=== PATIENT | male | born 1950 | race Caucasian/White ===

== ENCOUNTER 2020-05-19 00:49 | Inpatient (IN) | payer BC, MEDICARE ==
--- NOTE | 2020-05-19 01:17 | ED ---
Neuro HPI - General Stated Complaint: Possible Stroke Time Seen by Provider: 05/19/20 00:50 Source: EMS Mode of arrival: EMS - History of Present Illness Is the patient presenting with stroke symptoms?: Yes Last Known Well Date: 05/18/20 Last Known Well Time: 23:50 Onset/Timin -: minutes(s) Initial Comments: Patient 69-year-old man here to be evaluated for suspected stroke. Patient had been in the bathroom approximately 10 minutes before midnight when he developed left-sided facial droop and left upper extremity weakness. The patient also noted that his speech was not clear. They did call EMS and patient comes arrival. He is denying headache. No right-sided symptoms. Location: speech, left face, left arm History of same: No Place: home Severity: severe Quality: weak Improves With: time Worsens With: none On Anticoagulants: No Context: sudden onset Associated Symptoms: denies other symptoms Treatments Prior to Arrival: none - Related Data Home Medications: Home Medications Medication Instructions Recorded Confirmed Multivitamins, Thera [Multivitamin 1 tab PO DAILY 05/19/20 05/19/20 (formulary)] [place]-3 Fatty Acids/Fish Oil [Fish 1 cap PO DAILY 05/19/20 05/19/20 Oil 1,000 mg Softgel] Prostrate Supplement 1 tab PO DAILY 05/19/20 05/19/20 Allergies/Adverse Reactions: Allergies Allergy/AdvReac Type Severity Reaction Status Date / Time No Known Allergies Allergy Verified 05/19/20 06:34 Review of Systems ROS Statement: Those systems with pertinent positive or pertinent negative responses have been documented in the HPI. ROS Other: All systems not noted in ROS Statement are negative. Constitutional: Denies: fever, chills Eyes: Denies: eye pain, vision change ENT: Denies: ear pain, hearing loss Respiratory: Denies: cough, dyspnea, hemoptysis Cardiovascular: Denies: chest pain, palpitations, edema, syncope Gastrointestinal: Denies: abdominal pain, nausea, vomiting, diarrhea Genitourinary: Denies: dysuria, hematuria Musculoskeletal: Denies: back pain Skin: Reports: rash Neurological: Reports: weakness, numbness. Denies: headache, paresthesias, confusion, abnormal gait Hematological/Lymphatic: Denies: easy bleeding Stroke MDM - Lab Data Result diagrams: 05/19/20 01:27 05/19/20 01:27 Lab Results 05/19/20 05/19/20 05/19/20 Range/Units 01:27 01:27 01:27 WBC 13.1 H (3.8-10.6) k/uL RBC 5.22 (4.30-5.90) m/uL Hgb 16.1 (13.0-17.5) gm/dL Hct 49.9 (39.0-53.0) % MCV 95.6 (80.0-100.0) fL MCH 30.9 (25.0-35.0) pg MCHC 32.4 (31.0-37.0) g/dL RDW 13.5 (11.5-15.5) % Plt Count 171 (150-450) k/uL MPV 9.8 Neutrophils % 81 % Lymphocytes % 11 % Monocytes % 5 % Eosinophils % 1 % Basophils % 1 % Neutrophils # 10.5 H (1.3-7.7) k/uL Lymphocytes # 1.4 (1.0-4.8) k/uL Monocytes # 0.7 (0-1.0) k/uL Eosinophils # 0.2 (0-0.7) k/uL Basophils # 0.1 (0-0.2) k/uL PT 10.3 (9.0-12.0) sec INR 1.0 (<1.2) APTT 18.6 L (22.0-30.0) sec Sodium 140 (137-145) mmol/L Potassium 4.3 (3.5-5.1) mmol/L Chloride 107 (98-107) mmol/L Carbon Dioxide 22 (22-30) mmol/L Anion Gap 11 mmol/L BUN 21 H (9-20) mg/dL Creatinine 0.79 (0.66-1.25) mg/dL Est GFR (CKD-EPI)AfAm >90 (>60 ml/min/1.73 sqM) Est GFR (CKD-EPI)NonAf >90 (>60 ml/min/1.73 sqM) Glucose 111 H (74-99) mg/dL Calcium 9.8 (8.4-10.2) mg/dL Total Bilirubin 0.6 (0.2-1.3) mg/dL AST 32 (17-59) U/L ALT 29 (4-49) U/L Alkaline Phosphatase 73 (38-126) U/L Troponin I (0.000-0.034) ng/mL NT-Pro-B Natriuret Pep pg/mL Total Protein 7.6 (6.3-8.2) g/dL Albumin 4.5 (3.5-5.0) g/dL Coronavirus (PCR) (Not Detectd) 05/19/20 05/19/20 05/19/20 Range/Units 01:27 01:27 02:18 WBC (3.8-10.6) k/uL RBC (4.30-5.90) m/uL Hgb (13.0-17.5) gm/dL Hct (39.0-53.0) % MCV (80.0-100.0) fL MCH (25.0-35.0) pg MCHC (31.0-37.0) g/dL RDW (11.5-15.5) % Plt Count (150-450) k/uL MPV Neutrophils % % Lymphocytes % % Monocytes % % Eosinophils % % Basophils % % Neutrophils # (1.3-7.7) k/uL Lymphocytes # (1.0-4.8) k/uL Monocytes # (0-1.0) k/uL Eosinophils # (0-0.7) k/uL Basophils # (0-0.2) k/uL PT (9.0-12.0) sec INR (<1.2) APTT (22.0-30.0) sec Sodium (137-145) mmol/L Potassium (3.5-5.1) mmol/L Chloride (98-107) mmol/L Carbon Dioxide (22-30) mmol/L Anion Gap mmol/L BUN (9-20) mg/dL Creatinine (0.66-1.25) mg/dL Est GFR (CKD-EPI)AfAm (>60 ml/min/1.73 sqM) Est GFR (CKD-EPI)NonAf (>60 ml/min/1.73 sqM) Glucose (74-99) mg/dL Calcium (8.4-10.2) mg/dL Total Bilirubin (0.2-1.3) mg/dL AST (17-59) U/L ALT (4-49) U/L Alkaline Phosphatase (38-126) U/L Troponin I <0.012 (0.000-0.034) ng/mL NT-Pro-B Natriuret Pep 1510 pg/mL Total Protein (6.3-8.2) g/dL Albumin (3.5-5.0) g/dL Coronavirus (PCR) Not Detected (Not Detectd) - Medical Decision Making Patient 69-year-old man with presentation consistent with acute ischemic stroke. His workup does not reveal any hemorrhage. The CTA does appear to show M2 branch occlusion of right MCA consistent with the patient's presentation. After discussion of risks and benefits with patient and his , they do elect received TPA and this is administered. The patient admitted for further neurologic evaluation and treatment. He is stable through the course in [facility] department. - EKG Data -: EKG Interpreted by Nm EKG shows normal: sinus rhythm (With occasional PVC), axis (Normal), intervals (MS interval 162 ms, QRS duration 112 ms, with normal. QTC 497 ms, prolonged.), QRS complexes (Normal) Rate: normal (Rate 92 bpm) Interpretation: nonspecific ST-T wave changes Past Medical History Additional Past Medical History / Comment(s): colon cancer History of Any Multi-Drug Resistant Organisms: None Reported Past Surgical History: Orthopedic Surgery Additional Past Surgical History / Comment(s): hip Past Psychological History: No Psychological Hx Reported Smoking Status: Never smoker Past Alcohol Use History: None Reported Past Drug Use History: None Reported - Past Family History Father Family Medical History: Myocardial Infarction (MO) Family Family Medical History: No Reported History Course Vital Signs 05/19/20 05/19/20 05/19/20 01:00 01:45 02:00 Temperature 98.4 F Pulse Rate 76 90 82 Respiratory 18 17 16 Rate Blood Pressure 140/87 144/96 152/88 O2 Sat by Pulse 95 95 95 Oximetry 05/19/20 05/19/20 05/19/20 02:15 02:30 02:45 Temperature 98.7 F Pulse Rate 86 81 74 Respiratory 17 17 18 Rate Blood Pressure 148/97 140/86 142/90 O2 Sat by Pulse 94 L 94 L 95 Oximetry 05/19/20 05/19/20 05/19/20 03:00 03:15 03:30 Temperature Pulse Rate 79 80 80 Respiratory 18 18 17 Rate Blood Pressure 136/82 126/73 131/86 O2 Sat by Pulse 96 95 97 Oximetry 05/19/20 05/19/20 05/19/20 03:45 04:00 04:15 Temperature 98.5 F Pulse Rate 84 68 Respiratory 17 18 17 Rate Blood Pressure 134/92 118/86 O2 Sat by Pulse 98 97 Oximetry 05/19/20 05/19/20 04:45 05:15 Temperature Pulse Rate 80 90 Respiratory 17 18 Rate Blood Pressure 120/79 143/90 O2 Sat by Pulse 97 97 Oximetry - Reevaluation(s) Reevaluation #1: 05/19/20 01:35 Received call from stat read at 0128. Case was discussed with Dr. Ambrose with the patient and with his , and TPA ordered immediately. Critical Care Time Critical Care Time: Yes (35 minutes) Disposition Clinical Impression: Cerebrovascular accident (CVA) Disposition: ADMITTED IP TO THIS HOSP Condition: Serious Is patient prescribed a controlled substance at d/c from ED?: No
[2020-05-19] MEDS ORDERED: SODIUM CHLORIDE 0.9% 1,000 ML IV STA (01:21)
--- NOTE | 2020-05-19 01:26 | CT ---
EXAM: CT Angiography Head With Intravenous Contrast CLINICAL HISTORY: ITS.REASON CT Reason: neuro symptoms TECHNIQUE: Axial computed tomographic angiography images of the head with intravenous contrast. CTDI is 23.12 mGy and DLP is 574.4 mGy-cm. This CT exam was performed using one or more of the following dose reduction techniques: automated exposure control, adjustment of the mA and/or kV according to patient size, and/or use of iterative reconstruction technique. MIP reconstructed images were created and reviewed. COMPARISON: No relevant prior studies available. FINDINGS: Right internal carotid artery: No acute findings. Intracranial segment is patent with no significant stenosis. No aneurysm. Right anterior cerebral artery: Unremarkable. No occlusion or significant stenosis. No aneurysm. Right middle cerebral artery: Occlusion of an M2 branch of the right MCA (series 508, images 155-177). No aneurysm. Right posterior cerebral artery: Unremarkable. No occlusion or significant stenosis. No aneurysm. Right vertebral artery: Unremarkable as visualized. Left internal carotid artery: No acute findings. Intracranial segment is patent with no significant stenosis. No aneurysm. Left anterior cerebral artery: Unremarkable. No occlusion or significant stenosis. No aneurysm. Left middle cerebral artery: Unremarkable. No occlusion or significant stenosis. No aneurysm. Left posterior cerebral artery: origin. No occlusion or significant stenosis. No aneurysm. Left vertebral artery: Unremarkable as visualized. Basilar artery: Unremarkable. No occlusion or significant stenosis. No aneurysm. IMPRESSION: 1. Occlusion of an M2 branch of the right MCA. EXAM: CT Angiography Neck With Intravenous Contrast CLINICAL HISTORY: ITS.REASON CT Reason: neuro symptoms TECHNIQUE: Axial computed tomographic angiography images of the neck with intravenous contrast. CTDI is 23.12 mGy and DLP is 574.4 mGy-cm. This CT exam was performed using one or more of the following dose reduction techniques: automated exposure control, adjustment of the mA and/or kV according to patient size, and/or use of iterative reconstruction technique. MIP reconstructed images were created and reviewed. COMPARISON: No relevant prior studies available. FINDINGS: VASCULATURE: Right common carotid artery: Unremarkable. No significant stenosis. No dissection or occlusion. Right internal carotid artery: Unremarkable. Extracranial segment is patent with no significant stenosis. No dissection or occlusion. Right external carotid artery: Unremarkable. No occlusion. Right vertebral artery: Unremarkable. No significant stenosis. No dissection or occlusion. Left common carotid artery: Unremarkable. No significant stenosis. No dissection or occlusion. Left internal carotid artery: Unremarkable. Extracranial segment is patent with no significant stenosis. No dissection or occlusion. Left external carotid artery: Unremarkable. No occlusion. Left vertebral artery: Unremarkable. No significant stenosis. No dissection or occlusion. NECK: Bones/joints: Degenerative changes of the cervical spine. No acute fracture or dislocation. Soft tissues: Soft tissues of the neck are unremarkable. No mass. Lung apices: Smooth septal thickening at the lung apices suggesting pulmonary edema. CAROTID STENOSIS REFERENCE USING NASCET CRITERIA: % ICA stenosis = (1 - narrowest ICA diameter/diameter of distal cervical ICA) x 100. Mild - <50% stenosis. Moderate - 50-69% stenosis. Severe - 70-94% stenosis. Near occlusion - 95-99% stenosis. Occluded - 100% stenosis. IMPRESSION: 1. No acute findings in the arteries of the neck. 2. Pulmonary edema in the visualized lung apices. <MYCVCSECTION> Communications: 05/19/20 01:29 Call Doctor Regarding Stroke, called Dr. Kuhn on 05/19 01:28 (-05:00)
--- NOTE | 2020-05-19 01:26 | CT ---
EXAM: CT Head Without Intravenous Contrast CLINICAL HISTORY: ITS.REASON CT Reason: neuro symptoms TECHNIQUE: Axial computed tomography images of the head/brain without intravenous contrast. CTDI is 48.8 mGy and DLP is 1723.2 mGy-cm. This CT exam was performed using one or more of the following dose reduction techniques: automated exposure control, adjustment of the mA and/or kV according to patient size, and/or use of iterative reconstruction technique. COMPARISON: No relevant prior studies available. FINDINGS: Brain: No acute intracranial hemorrhage, mass-effect, or edema. There is hyperdensity of a sylvian branch of the right MCA (series 201, images 23-26). Fulton-white matter differentiation appears preserved. There is a small region of encephalomalacia suggested in the left occipital lobe, likely representing a small chronic cortical infarct. There is evidence of global parenchymal volume loss with prominence of the cerebral and cerebellar sulci. Basal cisterns are normal. Ventricles: No hydrocephalus. Bones/joints: Unremarkable. No acute fracture. Soft tissues: Unremarkable. Sinuses: Unremarkable as visualized. No acute sinusitis. Mastoid air cells: Unremarkable as visualized. No mastoid effusion. IMPRESSION: 1. Hyperdensity of a sylvian branch of the right MCA (series 201, images 23-26), concerning for M2 branch occlusion. No significant loss of fulton white matter differentiation is appreciated at this time. No acute hemorrhage. <MYCVCSECTION> Communications: 05/19/20 01:28 Call Doctor Regarding Stroke, called Dr. Kuhn on 05/19 01:28 (-05:00)
--- NOTE | 2020-05-19 01:28 | XR ---
EXAM: XR Chest, 1 View CLINICAL HISTORY: ITS.REASON XR Reason: nuero symptoms TECHNIQUE: Frontal view of the chest. COMPARISON: No relevant prior studies available. FINDINGS: Lungs: Diffuse bilateral interstitial opacities. Pleural space: No large pleural effusions. No pneumothorax. Heart: Cardiomegaly and pulmonary vascular congestion. Mediastinum: Unremarkable. Bones/joints: No acute osseous findings. IMPRESSION: Congestive heart failure with pulmonary edema.
[2020-05-19] MEDS ORDERED: Alteplase PER PHARMACY Stroke 1 EACH MISC MISCELLANE PRN (01:34)
[2020-05-19] MEDS ORDERED: ALTEPLASE BOLUS 9 MG in EMPTY SYRINGE 1 SYR IV STA (01:35)
[2020-05-19] MEDS ORDERED: ALTEPLASE 81 MG in EMPTY BAG 1 BAG IV STA ×2 (01:35→01:46)
[2020-05-19 01:47] LABS: Basophils # (A) 0.1 k/uL (0-0.2); Basophils % (A) 1 %; Eosinophils # (A) 0.2 k/uL (0-0.7); Eosinophils % (A) 1 %; HCT 49.9 % (39.0-53.0); HGB 16.1 gm/dL (13.0-17.5); Lymphocytes # (A) 1.4 k/uL (1.0-4.8); Lymphocytes % (A) 11 %; MCH 30.9 pg (25.0-35.0); MCHC 32.4 g/dL (31.0-37.0); MCV 95.6 fL (80.0-100.0); Mean Platelet Volume 9.8; Monocytes # (A) 0.7 k/uL (0-1.0); Monocytes % (A) 5 %; Neutrophils # (A) 10.5 k/uL (1.3-7.7); Neutrophils % (A) 81 %; Platelet Count 171 k/uL (150-450); RBC 5.22 m/uL (4.30-5.90); RDW 13.5 % (11.5-15.5); WBC 13.1 k/uL (3.8-10.6)
[2020-05-19 01:57] LABS: ALT 29 U/L (4-49); AST 32 U/L (17-59); African American GFR (CKD) >90 (>60 ml/min/1.73 sqM); Albumin 4.5 g/dL (3.5-5.0); Alkaline Phosphatase 73 U/L (38-126); Anion Gap 11 mmol/L; Blood Urea Nitrogen 21 mg/dL (9-20); Calcium 9.8 mg/dL (8.4-10.2); Carbon Dioxide 22 mmol/L (22-30); Chloride 107 mmol/L (98-107); Glucose 111 mg/dL (74-99); Non-African American GFR(CKD) >90 (>60 ml/min/1.73 sqM); Potassium 4.3 mmol/L (3.5-5.1); Sodium 140 mmol/L (137-145); Total Bilirubin 0.6 mg/dL (0.2-1.3); Total Protein 7.6 g/dL (6.3-8.2)
[2020-05-19 02:17] LABS: Prothrombin Time 10.3 sec (9.0-12.0)
[2020-05-19 02:30] LABS: Partial Thromboplastin Time 18.6 sec (22.0-30.0)
[2020-05-19] MEDS ORDERED: ACETAMINOPHEN TAB 325 MG TAB PO PRN (02:50)
[2020-05-19] MEDS ORDERED: LABETALOL 5 MG/ML VIAL MDV IVP PRN (02:50)
[2020-05-19] MEDS: SODIUM CHLORIDE 0.9% 1,000 ML IV SCH (03:01)
--- NOTE | 2020-05-19 03:58 | P.HPIM ---
History of Present Illness H&P Date: 05/19/20 Chief Complaint: Left-sided weakness 69-year-old male with remote history of colon cancer in remission Patient comes in due to sudden onset dizziness lightheadedness and left-sided weakness mainly in the left upper extremity he notified his this happened all of a sudden around midnight and within less than one hour he was brought to the hospital after notifying DMS patient reports sudden onset dizziness lightheadedness some headache and left-sided upper extremity weakness and numbness that happened while he was taking a shower he did not fall he sat down notified his he denies any associated chest pain trouble breathing or palpitations he never had any stroke symptoms in the past. He reports that he is healthy with no past medical history of any coronary artery disease, hyperlipidemia, hypertension or diabetes no thyroid problems. No history of A. fib. No recent traveling or hospitalization. He reports that he is at baseline status of his health. In the ED he was evaluated and code stroke activated he was found to have acute ischemic stroke interventional neurologist was notified and TPA was given as patient was within the window no contraindications his blood pressure was controlled. He is currently reports improvement in weakness and numbness of left upper extremity his speech is still little difficult but improving and he still having some left-sided facial weakness but improving. Blood work overall unremarkable except for slight reactive leukocytosis Review of Systems Pertinent positives as noted in HPI. All other systems were reviewed and are negative Past Medical History Additional Past Medical History / Comment(s): colon cancer History of Any Multi-Drug Resistant Organisms: None Reported Past Surgical History: Orthopedic Surgery Additional Past Surgical History / Comment(s): hip Past Psychological History: No Psychological Hx Reported Smoking Status: Never smoker Past Alcohol Use History: None Reported Past Drug Use History: None Reported - Past Family History Family Family Medical History: No Reported History Medications and Allergies Allergies Allergy/AdvReac Type Severity Reaction Status Date / Time No Known Allergies Allergy Verified 05/19/20 01:09 Physical Exam Vitals: Vital Signs Temp Pulse Resp BP Pulse Ox 05/19/20 02:15 86 17 148/97 94 L 05/19/20 02:00 82 16 152/88 95 05/19/20 01:45 90 17 144/96 95 05/19/20 01:00 98.4 F 76 18 140/87 95 Intake and Output 0205/18/20 05/19/20 14:59 22:59 06:59 Other: Weight 99.79 kg Constitutional: No acute distress, conversant, pleasant Eyes: Anicteric sclerae, moist conjunctiva, Pupils equal round reactive to light ENMT: NC/AT Oropharynx clear, no erythema, or exudates Neck: Supple, FROM, no masses, or JVD No carotid bruits No thyromegaly Lungs: Clear to auscultation Clear to percussion Normal respiratory effort, no accessory muscle use Cardiovascular: Heart regular in rate and rhythm, No murmurs, gallops, or rubs No peripheral edema Abdominal: Soft Nontender, no guarding, rebound or rigidity Abdomen moving with respiration Normoactive bowel sounds No hepatomegaly, No splenomegaly No palpable mass No abdominal wall hernia noted Skin: Normal temperature, tone, texture, turgor No induration No subcutaneous nodules No rash, lesions No ulcers Extremities: No digital cyanosis No clubbing Pedal pulses intact and symmetrical Radial pulses intact and symmetrical No calf tenderness Psychiatric: Alert and oriented to person, place and time Appropriate affect fair judgement Neuro Muscles Strength 5/5 in right upper and lower extremity and left lower extremity. Left upper extremity +3/5 Sensation to light touch grossly present throughout Cranial nerves II-XII, there is left facial droop, left hypoglossal weakness, otherwise grossly intact No focal sensory deficits Lymphatics: no palpable cervical or supraclavicular , or inguinal lymph nodes Results CBC & Chem 7: 05/19/20 01:27 05/19/20 01:27 Labs: Abnormal Lab Results - Last 24 Hours (Table) 05/19/20 05/19/20 Range/Units 01:27 01:27 WBC 13.1 H (3.8-10.6) k/uL Neutrophils # 10.5 H (1.3-7.7) k/uL BUN 21 H (9-20) mg/dL Glucose 111 H (74-99) mg/dL Assessment and Plan Assessment: Acute ischemic stroke, status post TPA Computed tomography scan showed occlusion of the M2 branch of the right MCA Pressure control keep systolic blood pressure below 180 diastolic blood pressure below 105 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
[2020-05-19] MEDS: FAMOTIDINE 20 MG/2 ML VIAL IV SCH ×2 (10:37→20:22)
[2020-05-19] MEDS: NON FORMULARY DRUG (Omega-3 Fatty Acids/Fish Oil [Fish Oil 1,000 Mg Softgel] 1 EACH Capsul PO SCH (10:38)
[2020-05-19] MEDS: MULTIVITAMINS, THERA 1 EACH TAB PO SCH (10:38)
--- NOTE | 2020-05-19 11:00 | ECHOF ---
Referral Reason:stroke MEASUREMENTS -------- HEIGHT: 170.2 cm WEIGHT: 96.6 kg BP: 142/98 RVIDd: 2.5 cm (< 3.3) IVSd: 1.1 cm (0.6 - 1.1) LVIDd: 6.2 cm (3.9 - 5.3) LVPWd: 1.2 cm (0.6 - 1.1) IVSs: 1.3 cm LVIDs: 6.0 cm LVPWs: 1.5 cm LAESV Index (A-L): 56.78 ml/m Ao Diam: 3.2 cm (2.0 - 3.7) AV Cusp: 2.0 cm (1.5 - 2.6) LA Diam: 3.7 cm (2.7 - 3.8) MV EXCURSION: 19.436 mm (> 18.000) MV EF SLOPE: 48 mm/s (70 - 150) EPSS: 2.3 cm MV E Derek: 1.18 m/s MV DecT: 141 ms MV A Derek: 0.32 m/s MV E/A Ratio: 3.68 AR PHT: 141 ms RAP: 5.00 mmHg RVSP: 14.60 mmHg FINDINGS -------- Sinus rhythm. This was a technically difficult study with suboptimal views. The left ventricle is mildly dilated. There is borderline concentric left ventricular hypertrophy. Overall left ventricular systolic function is severely impaired with, an EF between 20 - 25 %. In creased LAP Grade 3 Diastolic Dysfunction. Basal inferior LV wall motion is akinetic. Basal infe roseptal LV wall motion is akinetic. Mid inferior LV wall motion is akinetic. Mid inferoseptal LV wall motion is akinetic. Apical inferior LV wall motion is akinetic. The right ventricle is normal in size. LA is severely dilated >40 ml/m2 The right atrial size is normal. Lumason used The aortic valve is trileaflet and appears structurally normal. Trace amount of aortic regurgitatio n. The mitral valve is normal. [id number] mitral regurgitation is present. The tricuspid valve appears structurally normal. Trace tricuspid regurgitation present. Right juli tricular systolic pressure is normal at < 35 mmHg. Trace/mild (physiologic) pulmonic regurgitation. The aortic root size is normal. IVC Not well visulized. There is no pericardial effusion. CONCLUSIONS -------- 1. This was a technically difficult study with suboptimal views. 2. The left ventricle is mildly dilated. 3. There is borderline concentric left ventricular hypertrophy. 4. Overall left ventricular systolic function is severely impaired with, an EF between 20 - 25 %. 5. Increased LAP Grade 3 Diastolic Dysfunction. 6. Basal inferior LV wall motion is akinetic. 7. Basal inferoseptal LV wall motion is akinetic. 8. Mid inferior LV wall motion is akinetic. 9. Mid inferoseptal LV wall motion is akinetic. 10. Apical inferior LV wall motion is akinetic. 11. LA is severely dilated >40 ml/m2 12. Trace amount of aortic regurgitation. 13. Pldt-za-odhmdzis mitral regurgitation is present. 14. Trace tricuspid regurgitation present. 15. There is no pericardial effusion. SCISSORS GRINDER: Radha Neil RDCS
--- NOTE | 2020-05-19 14:40 | P.PN ---
Subjective Progress Note Date: 05/19/20 Patient is doing well today. He denies any weakness anywhere. Left-sided weakness has resolved. He said that he is still having some difficulty with his speech though it appears clear to me. Patient denies any concerns otherwise. No shortness of breath or cough. He told me that he is fairly active and goes to the gym regularly. He denies any known cardiac history. Chest x-ray done yesterday showed evidence of pulmonary edema. Patient is not hypoxic. He denies orthopnea Objective - Vital Signs Vital signs: Vital Signs Temp 98.3 F 05/19/20 08:00 Pulse 81 05/19/20 10:00 Resp 21 05/19/20 10:00 BP 146/89 05/19/20 10:00 Pulse Ox 96 05/19/20 10:00 Intake & Output 05/18/20 05/19/20 05/19/20 18:59 06:59 18:59 Intake Total 100 400 Balance 100 400 Weight 96.8 kg Intake: IV 100 400 Sodium Chloride 0.9% 1, 100 400 000 ml @ 100 mls/hr IV . Q10H STA Rx#:[id number] Other: Voiding Method Urinal Urinal # Voids 1 1 # Bowel Movements 1 - Exam General: The patient is awake and alert, in no distress Eye: there is normal conjunctiva bilaterally. Neck: The neck is supple, there is no JVD. Cardiovascular: Normal S1-S2, no S3-S4, no murmurs. Respiratory: Lungs clear to auscultation bilaterally Gastrointestinal: Abdomen is soft, nontender Musculoskeletal: There is no pedal edema. Neurological:. Speech is normal. Skin: Skin is warm and dry - Labs CBC & Chem 7: 05/19/20 01:27 05/19/20 01:27 Labs: Abnormal Lab Results - Last 24 Hours (Table) 05/19/20 05/19/20 05/19/20 Range/Units 01:27 01:27 01:27 WBC 13.1 H (3.8-10.6) k/uL Neutrophils # 10.5 H (1.3-7.7) k/uL APTT 18.6 L (22.0-30.0) sec BUN 21 H (9-20) mg/dL Glucose 111 H (74-99) mg/dL Assessment and Plan Assessment: This is a 69-year-old male with past medical history noted below who presented to the hospital with sudden onset dizziness and left-sided weakness. Patient was evaluated in the ER and admitted to the hospital for further management of his medical problems noted below. 1. Acute stroke, status post TPA in the ER. Computed tomography scan of the head showed possible evidence of occlusion of M2 branch of the right MCA. CT angiogram of the head and neck with no hemodynamically significant stenosis. I ordered MRI for further evaluation. Neurology consulted. Continue aspirin and Lipitor. Echocardiogram showed no evidence of intracardiac source of stroke 2. Systolic and diastolic heart failure with mild exacerbation, this is a new diagnosis for this patient. Echocardiogram showed EF of 20-25%. No known cardiac history. I would consult cardiology for further evaluation. Start metoprolol titrate 25 mg twice daily. IV Lasix 40 mg once a day. Repeat chest x-ray within the next day or 2. 3. GI prophylaxis with IV Pepcid, DVT prophylaxis with subcu Lovenox Today, I reviewed his medication list and lab work results Awaiting fasting lipid profile TSH within normal range Awaiting neurology consultation PT/OT/speech pathology evaluation Repeat lab work in the morning
--- NOTE | 2020-05-19 14:59 | MR ---
EXAMINATION TYPE: MR angio head wo con DATE OF EXAM: 05/19/2020 COMPARISON: MR brain same date, CT brain same date, CTA same date HISTORY: CVA TECHNIQUE: Time of flight images focusing on the [place] of [place] were performed without contrast. 3- dimensional reconstructions on an alternate workstation. FINDINGS: Interval recanalized M2 segment of the middle cerebral artery on the right. Anterior computer typesetter ior circulation are intact. No evident embolus. No aneurysm. Hypointense signal present along the ins ular cortex on the right is noted. Persistent origin of the posterior cerebral artery present o n the left. IMPRESSION: Patent [place] of [place]. Interval recanalized M2 segment right internal carotid artery.
--- NOTE | 2020-05-19 15:08 | MR ---
MR brain without contrast HISTORY: Cerebrovascular accident Multiplanar multisequence imaging obtained through the brain. Correlation CT brain 05/19/2020 There is restricted diffusion present along the insula, posterior right temporal lobe corresponding s ignal noted, increased on inversion recovery T2-weighted sequences. There is no hemorrhage or hydroce phalus. Corpus callosum, pituitary, cervical medullary junction, cerebellopontine angles are normal. There are inflammatory changes in ethmoid air cells. IMPRESSION: Subacute infarct corresponding to patient's previously noted abnormality in the distribut ion described above.
[2020-05-19] MEDS: FUROSEMIDE 10 MG/ML 4 ML VIAL IV SCH (16:09)
[2020-05-19] MEDS: METOPROLOL TARTRATE 25 MG TAB PO SCH ×2 (16:09→20:22)
--- NOTE | 2020-05-19 17:06 | P.CNNES ---
History of Present Illness Consult date: 05/19/20 Requesting physician: William White Reason for Consult: Acute ischemic stroke, TPA administration History of Present Illness: Patient is a 69-year-old left-handed male came to the hospital early this morning at 1 AM for acute focal symptoms. Patient states that around 11:30 PM he went to the bathroom and sat in the bathtub. He opened the shower, and suddenly felt dizzy, lightheaded, as if he will faint. He felt will pass out. He sat down, but he fell backwards. Patient noticed his left arm was flopping, lingual, not under his control. His came over, and lifted his arm, but it dropped down. He still could feel the sensations in the left arm. He noticed slurred speech. Denied any weakness of the leg on either side. He also noticed that he was drooling from the corner of the mouth. Patient's called the ambulance, and he was brought to the hospital. Vital signs on arrival blood pressure 140/87, pulse rate 76, temperature 98.4. Computed tomography scan of head showed hypodensity of the [place] branch of the right MCA concerning for M2 branch occlusion. No significant loss of chew-white matter differentiation is appreciated this time. No acute hemorrhage. CTA of head showed occlusion of an M2 branch of the right MCA. CTA of the neck showed no acute findings in the arteries of the neck. Pulmonary edema in the visualized lung apices. Chest x-ray showed congestive heart failure with pulmonary edema. EKG shows sinus rhythm with occasional PVCs. Nonspecific ST-T wave abnormality. Blood test shows WBC 13.1 hemoglobin 16.1, platelets 171. INR is 1.0. Chem-20 is normal. Troponin negative. TSH normal. Sewell virus PCR negative. ED staff discussed case with stroke neurologist Dr. Garay, and TPA was administered at 1:35 AM. Patient was transferred to ICU. Patient states that his symptoms have improved, as the weakness of the left arm has resolved, but he still feels slight slurred speech, as if the tongue is out of place. Denies any weakness in the legs. Denies any numbness. No headache or problem with the vision. Denies any previous history of strokes or TIA. Patient takes multivitamins, and omega fatty 3. Does not take any type of antiplatelet medication. Review of Systems As mentioned above in detail. Patient denies any chest pain shortness of breath, wheezing or cough, denies diplopia, loss of vision, blurred vision. Denies neck or back pain, fevers chills. No nausea vomiting diarrhea. He did have some dizziness. All other review of systems unremarkable. Past Medical History Additional Past Medical History / Comment(s): colon cancer History of Any Multi-Drug Resistant Organisms: None Reported Past Surgical History: Orthopedic Surgery Additional Past Surgical History / Comment(s): hip Past Anesthesia/Blood Transfusion Reactions: No Reported Reaction Past Psychological History: No Psychological Hx Reported Smoking Status: Never smoker Past Alcohol Use History: None Reported Past Drug Use History: None Reported - Past Family History Father Family Medical History: Myocardial Infarction ([place]) Family Family Medical History: No Reported History Medications and Allergies Home Medications Medication Instructions Recorded Confirmed Type Multivitamins, Thera [Multivitamin 1 tab PO DAILY 05/19/20 05/19/20 History (formulary)] [place]-3 Fatty Acids/Fish Oil [Fish 1 cap PO DAILY 05/19/20 05/19/20 History Oil 1,000 mg Softgel] Prostrate Supplement 1 tab PO DAILY 05/19/20 05/19/20 History Allergies Allergy/AdvReac Type Severity Reaction Status Date / Time No Known Allergies Allergy Verified 05/19/20 06:34 Physical Examination - Vital Signs Vital Signs: Vital Signs Temp Pulse Resp BP Pulse Ox 05/19/20 07:14 95 05/19/20 07:00 87 27 H 142/98 93 L 05/19/20 06:30 85 25 H 139/88 94 L 05/19/20 06:00 96.8 F L 92 18 141/98 95 05/19/20 05:50 109 H 20 05/19/20 05:45 80 17 133/90 98 05/19/20 05:15 90 18 143/90 97 05/19/20 04:45 80 17 120/79 97 05/19/20 04:15 68 17 118/86 97 05/19/20 04:00 18 05/19/20 03:45 98.5 F 84 17 134/92 98 05/19/20 03:30 80 17 131/86 97 05/19/20 03:15 80 18 126/73 95 05/19/20 03:00 79 18 136/82 96 05/19/20 02:45 74 18 142/90 95 05/19/20 02:30 98.7 F 81 17 140/86 94 L 05/19/20 02:15 86 17 148/97 94 L 05/19/20 02:00 82 16 152/88 95 05/19/20 01:45 90 17 144/96 95 05/19/20 01:00 98.4 F 76 18 140/87 95 Intake and Output 05/18/20 05/19/20 05/19/20 22:59 06:59 14:59 Intake Total 100 400 Balance 100 400 Intake: IV 100 400 Sodium Chloride 0.9% 1, 100 400 000 ml @ 100 mls/hr IV . Q10H STA Rx#:[id number] Other: Voiding Method Urinal # Voids 1 1 # Bowel Movements 1 Weight 96.8 kg On examination patient is an elderly male, very pleasant in no acute distress. Patient speech is very mildly dysarthric but no aphasia. Patient can name and repeat very well. On cranial examination pupils are round and reactive to light, visual garcia are full on confrontation, extraocular muscles are intact with no nystagmus. Patient has slight flattening of the left nasolabial fold. Tongue protrudes slightly to the left. Palatal elevation and sensation normal, hearing and shoulder shrug normal. Facial sensation is normal on either side. On muscle strength testing patient has mild left pronation, but no drift. The strength is normal in arms and legs distally and proximally. Reflexes are (right/left)Biceps 2/2+, brachioradialis 2/2+, knee 2+/3, ankle bun/1 and plantar is downgoing on the right, up on the left side. Sensory touch revealed decreased sensation on the left side arm and leg as compared to the right side. He does neglect left side on double simultaneous stimulation. No ataxia for gqxydx-[id number] or qskd-zo-gjxa testing. Tone and bulk of muscles normal. Gait deferred. On general examination there is no obvious bruit, S1 and S2 audible, abdomen soft nontender. Chest is clear. Peripheral pulses present. No edema. Results - Laboratory Findings CBC and BMP: 05/19/20 01:27 05/19/20 01:27 Abnormal Lab Findings: Abnormal Labs 05/19/20 05/19/20 05/19/20 01:27 01:27 01:27 WBC 13.1 H Neutrophils # 10.5 H APTT 18.6 L BUN 21 H Glucose 111 H Assessment and Plan Assessment: * Acute ischemic stroke due to acute right M2 occlusion. Probable embolic. Rule out cardiac source. Current NIH stroke scale is 3. * No history of hypertension diabetes or any vascular risk factors. Plan: * MRI of the brain revealed subacute infarct along the insula, posterior right temporal lobe. No hemorrhagic conversion. * MRA of the brain revealed patent [place] of [place]. Interval recanalized M2 segment right ICA. * 2-D echo showed left-ventricule is mildly dilated. Borderline concentric LVH, overall left ventricular systolic function is severely impaired with EF is between 20-25%. Basal inferior, basal inferioroseptal, mid inferior, mid inferior lateral and apical inferior lateral wall motion are akinetic. Left atrium is severely dilated. * Hemoglobin A1c, lipid panel pending. * Consider DAVIDA to rule out embolic source. * No antiplatelets or anticoagulants for 24 hours. Follow post-TPA orders. * Repeat computed tomography scan of head in 24 hours post-TPA to rule out hemorrhagic conversion. * Continue close neuro-checks.
--- NOTE | 2020-05-19 17:12 | P.CNPUL ---
History of Present Illness Consult date: 05/19/20 Chief complaint: Acute left-sided weakness History of present illness: This is a 69-year-old male patient who came into the emergency room with left- sided weakness of an acute sudden onset the started midnight yesterday and within less than an hour he was brought into the emergency department. He did have some headache along with left upper extremity weakness and numbness while he was taking a shower. No history of any trauma. He was evaluated in the emergency department. CTA of the brain was done and showed no acute abnormalities and the neck or the carotids. No intracranial abnormalities involving the internal carotid, or the anterior cerebral. There was occlusion of the M2 branch of the right middle cerebral artery without any aneurysm formation. The right posterior cerebral and the vertebral arteries unremarkable. Left-sided arteries also unremarkable. The patient symptoms most consistent with an acute ischemic stroke. Neuro interventional list was contacted and the patient was given TPA in the emergency room following that he was admitted to the intensive care unit. His course in the emergency was essentially uneventful and he was moved to the ICU. His blood work was essentially within normal limits. A platelet count of 171. Hemoglobin was 16.1. Correlation profile is within normal limits. Electrodes are all within normal limits. Renal function was within normal limits. The mccray virus/Covid 19 testing was negative. The EKG showed a normal sinus rhythm. Nonspecific ST segment changes were seen. His blood pressure also remained stable. Echocardiogram was done today and the patient was found to have an ejection fraction of 20-25%. Note that he has no previous history of congestion heart fa ilure. On today's evaluation, the left side is all. His speech was clear. No shortness of breath. Cardiac rhythm was sinus. He has been fairly active. He is currently on high dose statins with Lipitor 80 mg by mouth daily. He is on aspirin 325 mg by mouth daily. He is also started on metoprolol 25 mg by mouth twice a day and Lasix 40 mg IV every day. Review of Systems Constitutional: Denies chills, Denies fever Eyes: denies as per HPI, denies blurred vision, denies bulging eye, denies decreased vision, denies diplopia, denies discharge, denies dry eye, denies irritation, denies itching, denies pain, denies photophobia, denies loss of peripheral vision, denies loss of vision, denies tunnel vision/blind spots Ears: deny: decreased hearing, ear discharge, earache, tinnitus Ears, nose, mouth and throat: Reports as per HPI Breasts: absent: as per HPI, gynecomastia Cardiovascular: Reports as per HPI Respiratory: Reports as per HPI Gastrointestinal: Reports as per HPI Genitourinary: Reports as per HPI Musculoskeletal: Reports as per HPI Musculoskeletal: absent: ankle pain, ankle stiffness, ankle swelling Integumentary: Reports as per HPI Neurological: Reports as per HPI, Reports weakness Psychiatric: Reports as per HPI Endocrine: Reports as per HPI Hematologic/Lymphatic: Reports as per HPI Allergic/Immunologic: Reports as per HPI Past Medical History Additional Past Medical History / Comment(s): colon cancer History of Any Multi-Drug Resistant Organisms: None Reported Past Surgical History: Orthopedic Surgery Additional Past Surgical History / Comment(s): hip Past Anesthesia/Blood Transfusion Reactions: No Reported Reaction Past Psychological History: No Psychological Hx Reported Smoking Status: Never smoker Past Alcohol Use History: None Reported Past Drug Use History: None Reported - Past Family History Father Family Medical History: Myocardial Infarction ([place]) Family Family Medical History: No Reported History Medications and Allergies Home Medications Medication Instructions Recorded Confirmed Type Multivitamins, Thera [Multivitamin 1 tab PO DAILY 05/19/20 05/19/20 History (formulary)] [place]-3 Fatty Acids/Fish Oil [Fish 1 cap PO DAILY 05/19/20 05/19/20 History Oil 1,000 mg Softgel] Prostrate Supplement 1 tab PO DAILY 05/19/20 05/19/20 History Allergies Allergy/AdvReac Type Severity Reaction Status Date / Time No Known Allergies Allergy Verified 05/19/20 06:34 Physical Exam Vitals: Vital Signs Temp Pulse Resp BP Pulse Ox 05/19/20 15:06 95 05/19/20 10:00 81 21 146/89 96 05/19/20 09:30 81 18 140/94 95 05/19/20 09:00 84 21 146/82 96 05/19/20 08:30 98 19 145/95 05/19/20 08:00 98.3 F 96 21 131/89 97 05/19/20 07:30 81 26 H 140/97 94 L 05/19/20 07:14 95 05/19/20 07:00 87 27 H 142/98 93 L 05/19/20 06:30 85 25 H 139/88 94 L 05/19/20 06:00 96.8 F L 92 18 141/98 95 05/19/20 05:50 109 H 20 05/19/20 05:45 80 17 133/90 98 05/19/20 05:15 90 18 143/90 97 05/19/20 04:45 80 17 120/79 97 05/19/20 04:15 68 17 118/86 97 05/19/20 04:00 18 05/19/20 03:45 98.5 F 84 17 134/92 98 05/19/20 03:30 80 17 131/86 97 05/19/20 03:15 80 18 126/73 95 05/19/20 03:00 79 18 136/82 96 05/19/20 02:45 74 18 142/90 95 05/19/20 02:30 98.7 F 81 17 140/86 94 L 05/19/20 02:15 86 17 148/97 94 L 05/19/20 02:00 82 16 152/88 95 05/19/20 01:45 90 17 144/96 95 05/19/20 01:00 98.4 F 76 18 140/87 95 Intake and Output 05/19/20 05/19/20 05/19/20 06:59 14:59 22:59 Intake Total 100 400 Balance 100 400 Intake: IV 100 400 Sodium Chloride 0.9% 1, 100 400 000 ml @ 100 mls/hr IV . Q10H STA Rx#:[id number] Other: Voiding Method Urinal Urinal # Voids 1 1 # Bowel Movements 1 Weight 96.8 kg The patient appeared well nourished and normally developed. Vital signs as documented. Head exam is unremarkable. No scleral icterus or corneal arcus noted. Neck is without jugular venous distension, thyromegaly, or carotid bruits. Carotid upstrokes are brisk bilaterally. Lungs are clear to auscultation and percussion. Cardiac exam reveals the PMI to be normally sized and situated. Rhythm is regular. First and second heart sounds normal. No murmurs, rubs or gallops. Abdominal exam reveals normal bowel sounds, no masses, no organomegaly and no aortic enlargement. Extremities are nonedematous and both femoral and pedal pulses are normal.Examination of the skin revealed no evidence of significant rashes, suspicious appearing nevi or other concerning lesions. Neur ologic exam shows adequate water function the left upper extremity and the motor function essentially symmetrical. Cranial nerves are intact. There was some left facial droop which is improved. Tongue is midline. Pupils are equal and reactive to light. No nystagmus. No Babinski. No clonus. Equal and symmetrical reflexes. Results - Laboratory Findings CBC and BMP: 05/19/2005/19/20 PT/INR, D-dimer PT 10.3 sec (9.0-12.0) 05/19/20 INR 1.0 (<1.2) 05/19/20: Abnormal lab findings: Abnormal Labs 05/19/20 05/19/20 05/19/20:05 05: WBC 13.1 H Neutrophils # 10.5 H APTT 18.6 L BUN 21 H Glucose 111 H Assessment and Plan Plan: [address]ogram showing obstruction/occlusion of the M2 branch of RCA and the patient presented with left sided weakness involving the left face and left upper extremity. The patient's post-TPA with good results with subsequent recovery of the motor function left upper extremity. He is currently being monitored in the intensive care unit. Hemodynamically stable 2 systolic heart failure with an ejection fraction of 20-25% in addition to segmental wall motion abnormality, consider underlying ischemic cardiomyopathy especially with segmental wall motion changes 3 colon cancer Plan Agree on the current treatment Neurochecks Monitor the motor function left upper extremity Aspirin 325 mg by mouth daily High-dose statins with Lipitor 80 mg by mouth daily Agree on metoprolol 25 mg by mouth twice a day. May benefit from JUAN JOSE inhibitor at a later stage. Will need a cardiology consultation with subsequent cardiac catheterization rule out underlying ischemic cardiomyopathy underlying coronary artery disease MRI of the brain neurology consultation keep in ICU for 24 hours post TPA administration for further monitoring
[2020-05-19 17:16] LABS: Hemoglobin A1C 5.1 % (4.0-6.0)
[2020-05-19] MEDS: ATORVASTATIN 80 MG TAB PO SCH (20:22)
[2020-05-20 04:56] LABS: Basophils # (A) 0.1 k/uL (0-0.2); Basophils % (A) 0 %; Eosinophils # (A) 0.3 k/uL (0-0.7); Eosinophils % (A) 2 %; HCT 47.5 % (39.0-53.0); HGB 15.7 gm/dL (13.0-17.5); Lymphocytes # (A) 1.9 k/uL (1.0-4.8); Lymphocytes % (A) 16 %; MCH 31.2 pg (25.0-35.0); MCHC 33.1 g/dL (31.0-37.0); MCV 94.3 fL (80.0-100.0); Mean Platelet Volume 9.7; Monocytes # (A) 1.2 k/uL (0-1.0); Monocytes % (A) 9 %; Neutrophils # (A) 8.7 k/uL (1.3-7.7); Neutrophils % (A) 70 %; Platelet Count 155 k/uL (150-450); RBC 5.03 m/uL (4.30-5.90); RDW 13.1 % (11.5-15.5); WBC 12.4 k/uL (3.8-10.6)
[2020-05-20 05:06] LABS: African American GFR (CKD) >90 (>60 ml/min/1.73 sqM); Anion Gap 11 mmol/L; Blood Urea Nitrogen 13 mg/dL (9-20); Calcium 9.5 mg/dL (8.4-10.2); Carbon Dioxide 20 mmol/L (22-30); Chloride 108 mmol/L (98-107); Cholesterol 194 mg/dL (<200); Glucose 102 mg/dL (74-99); HDL Cholesterol 37 mg/dL (40-60); LDL Cholesterol,Calculated 131 mg/dL (0-99); Magnesium 1.9 mg/dL (1.6-2.3); Non-African American GFR(CKD) >90 (>60 ml/min/1.73 sqM); Potassium 3.9 mmol/L (3.5-5.1); Sodium 139 mmol/L (137-145); Triglycerides 129 mg/dL (<150)
[2020-05-20] MEDS ORDERED: POTASSIUM CHLORIDE ER 20 MEQ TAB.ER PO SCH (06:00)
[2020-05-20] MEDS: MAGNESIUM SULFATE-D5W PMX 1 GM in DEXTROSE/WATER 1 100ML.BAG IVPB SCH ×2 (06:11→08:42)
[2020-05-20] MEDS: SODIUM CHLORIDE 0.9% 1,000 ML IV SCH (06:11)
[2020-05-20] MEDS: ASPIRIN 325 MG TAB PO SCH (08:42)
[2020-05-20] MEDS: FUROSEMIDE 10 MG/ML 4 ML VIAL IV SCH (08:42)
[2020-05-20] MEDS: METOPROLOL TARTRATE 25 MG TAB PO SCH ×2 (08:42→20:14)
[2020-05-20] MEDS: MULTIVITAMINS, THERA 1 EACH TAB PO SCH (08:42)
[2020-05-20] MEDS: lisinopriL 5 MG TAB PO SCH (08:42)
[2020-05-20] MEDS: FAMOTIDINE 20 MG/2 ML VIAL IV SCH ×2 (08:43→20:14)
[2020-05-20] MEDS: NON FORMULARY DRUG (Omega-3 Fatty Acids/Fish Oil [Fish Oil 1,000 Mg Softgel] 1 EACH Capsul PO SCH (08:43)
--- NOTE | 2020-05-20 08:55 | P.PN ---
Subjective Progress Note Date: 05/20/20 This is a 69-year-old male patient who came into the emergency room with left-s ided weakness of an acute sudden onset the started midnight yesterday and within less than an hour he was brought into the emergency department. He did have some headache along with left upper extremity weakness and numbness while he was taking a shower. No history of any trauma. He was evaluated in the emergency department. CTA of the brain was done and showed no acute abnormalities and the neck or the carotids. No intracranial abnormalities involving the internal carotid, or the anterior cerebral. There was occlusion of the M2 branch of the right middle cerebral artery without any aneurysm formation. The right posterior cerebral and the vertebral arteries unremarkable. Left-sided arteries also unremarkable. The patient symptoms most consistent with an acute ischemic stroke. Neuro interventional list was contacted and the patient was given TPA in the emergency room following that he was admitted to the intensive care unit. His course in the emergency was essentially uneventful and he was moved to the ICU. His blood work was essentially within normal limits. A platelet count of 171. Hemoglobin was 16.1. Correlation profile is within normal limits. Electrodes are all within normal limits. Renal function was within normal limits. The mccray virus/Covid 19 testing was negative. The EKG showed a normal sinus rhythm. Nonspecific ST segment changes were seen. His blood pressure also remained stable. Echocardiogram was done today and the patient was found to have an ejection fraction of 20-25%. Note that he has no previous history of congestion heart failure. On today's evaluation, the left side is all. His speech was clear. No shortness of breath. Cardiac rhythm was sinus. He has been fairly active. He is currently on high dose statins with Lipitor 80 mg by mouth daily. He is on aspirin 325 mg by mouth daily. He is also started on metoprolol 25 mg by mouth twice a day and Lasix 40 mg IV every day. On today's evaluation, 05/20/2020 the patient is stable. No new onset neurologic deficits. Motor function left upper extremity strong. Speech is adequate. A speech evaluation is being done today. He is hemodynamically stable. Cardiac rhythm is sinus. No hypotension. He is on room air oxygen. He is on aspirin. On Lipitor. He is post thrombolytic treatment. Echocardiogram was noted. He has probably ischemic cardiomyopathy with an ejection fraction of 20-25% and the patient was started on a combination of metoprolol 25 mg twice a day, also on Lasix 40 mg IV once a day which will be switched to oral. Objective - Vital Signs Vital signs: Vital Signs Temp 98.5 F 05/20/20 04:00 Pulse 72 05/20/20 07:00 Resp 14 05/20/20 07:00 BP 137/89 05/20/20 07:00 Pulse Ox 95 05/20/20 07:00 Intake & Output 05/19/20 05/20/20 05/20/20 18:59 06:59 18:59 Intake Total 900 260 20 Output Total 1900 575 0 Balance -1000 -315 20 Weight 93.3 kg Intake: IV 900 260 20 Sodium Chloride 0.9% 1, 800 000 ml @ 100 mls/hr IV . Q10H STA Rx#:[id number] Sodium Chloride 0.9% 1, 100 260 20 000 ml @ 20 mls/hr IV . Q24H OLAYINKA Rx#:[id number] Output: Urine 1900 575 0 Other: Voiding Method Urinal Urinal # Voids 1 1 0 # Bowel Movements 1 - Exam The patient appeared well nourished and normally developed. Vital signs as documented. Head exam is unremarkable. No scleral icterus or corneal arcus noted. Neck is without jugular venous distension, thyromegaly, or carotid bruits. Carotid upstrokes are brisk bilaterally. Lungs are clear to auscultation and percussion. Cardiac exam reveals the PMI to be normally sized and situated. Rhythm is regular. First and second heart sounds normal. No murmurs, rubs or gallops. Abdominal exam reveals normal bowel sounds, no masses, no organomegaly and no aortic enlargement. Extremities are nonedematous and both femoral and pedal pulses are normal.Examination of the skin revealed no evidence of sig nificant rashes, suspicious appearing nevi or other concerning lesions. Neurologic exam shows adequate water function the left upper extremity and the motor function essentially symmetrical. Cranial nerves are intact. There was some left facial droop which is improved. Tongue is midline. Pupils are equal and reactive to light. No nystagmus. No Babinski. No clonus. Equal and symmetrical reflexes. - Labs CBC & Chem 7: 05/20/20 04:41 02/11/21 04:41 Labs: Abnormal Lab Results - Last 24 Hours (Table) 05/20/20 05/20/20 Range/Units 04:41 04:41 WBC 12.4 H (3.8-10.6) k/uL Neutrophils # 8.7 H (1.3-7.7) k/uL Monocytes # 1.2 H (0-1.0) k/uL Chloride 108 H (98-107) mmol/L Carbon Dioxide 20 L (22-30) mmol/L Glucose 102 H (74-99) mg/dL LDL Cholesterol, Calc 131 H (0-99) mg/dL HDL Cholesterol 37 L (40-60) mg/dL Assessment and Plan Plan: [address]ogram showing obstruction/occlusion of the M2 branch of RCA and the patient presented with left sided weakness involving the left face and left upper extremity. The patient's post-TPA with good results with subsequent recovery of the motor function left upper extremity. He is currently being monitored in the intensive care unit. Hemodynamically stable 2 systolic heart failure with an ejection fraction of 20-25% in addition to segmental wall motion abnormality, consider underlying ischemic cardiomyopathy especially with segmental wall motion changes 3 colon cancer 4 suspected UTI with Morganella, currently on IV Rocephin Plan Neurologically stable Aspirin 325 mg by mouth daily High-dose statins with Lipitor 80 mg by mouth daily Agree on metoprolol 25 mg by mouth twice a day. Lisinopril 5 mg by mouth daily, switch the Lasix to oral and obtain a cardiology consultation Will need a cardiology consultation with subsequent cardiac catheterization rule out underlying ischemic cardiomyopathy underlying coronary artery disease MRI of the brain is consistent with an ischemic subacute CVA neurology consultation is appreciated Discontinued IV Rocephin and put the patient on ciprofloxacin 500 mg by mouth twice a day for the next 5 days We'll follow, will be transferred to [facility] with telemetry or selective
[2020-05-20] MEDS ORDERED: ENOXAPARIN 40 MG/0.4 ML SYRINGE SQ SCH (09:00)
--- NOTE | 2020-05-20 10:26 | P.PN ---
Subjective Progress Note Date: 05/20/20 Patient is doing well today. His having slight left facial droop. No acute events overnight reported by nursing staff. Patient denies any shortness of breath Objective - Vital Signs Vital signs: Vital Signs Temp 98.5 F 05/20/20 08:00 Pulse 76 05/20/20 10:00 Resp 19 05/20/20 09:30 BP 123/85 05/20/20 10:00 Pulse Ox 96 05/20/20 10:00 Intake & Output 05/19/20 05/20/20 05/20/20 18:59 06:59 18:59 Intake Total 900 260 60 Output Total 1900 575 0 Balance -1000 -315 60 Weight 93.3 kg Intake: IV 900 260 60 Sodium Chloride 0.9% 1, 800 000 ml @ 100 mls/hr IV . Q10H [facility] Rx#:[id number] Sodium Chloride 0.9% 1, 100 260 60 000 ml @ 20 mls/hr IV . Q24H [facility] Rx#:[id number] Output: Urine 1900 575 0 Other: Voiding Method Urinal Urinal Urinal # Voids 1 1 0 # Bowel Movements 1 - Exam General: The patient is awake and alert, in no distress Eye: there is normal conjunctiva bilaterally. Neck: The neck is supple, there is no JVD. Cardiovascular: Normal S1-S2, no S3-S4, no murmurs. Respiratory: Lungs clear to auscultation bilaterally Gastrointestinal: Abdomen is soft, nontender Musculoskeletal: There is no pedal edema. Neurological:. Speech is normal. Skin: Skin is warm and dry - Labs CBC & Chem 7: 05/20/20 04:41 05/20/20 04:41 Labs: Abnormal Lab Results - Last 24 Hours (Table) 05/20/20 05/20/20 Range/Units 04:41 04:41 WBC 12.4 H (3.8-10.6) k/uL Neutrophils # 8.7 H (1.3-7.7) k/uL Monocytes # 1.2 H (0-1.0) k/uL Chloride 108 H (98-107) mmol/L Carbon Dioxide 20 L (22-30) mmol/L Glucose 102 H (74-99) mg/dL LDL Cholesterol, Calc 131 H (0-99) mg/dL HDL Cholesterol 37 L (40-60) mg/dL Assessment and Plan Assessment: This is a 69-year-old male with past medical history noted below who presented to the hospital with sudden onset dizziness and left-sided weakness. Patient was evaluated in the ER and admitted to the hospital for further management of his medical problems noted below. 1. Acute stroke, status post TPA in the ER. MRI of the brain showed subacute infarct involving the right temporal lobe. Computed tomography scan of the head on presentation in the ER showed possible evidence of occlusion of M2 branch of the right MCA this appeared on MRA with interval recanalized M2 segment right internal carotid artery. CT angiogram of the head and neck with no hemodynamically significant stenosis. Neurology consulted, appreciate recommendations. Continue aspirin and Lipitor. Echocardiogram showed no evidence of intracardiac source of stroke 2. Systolic and diastolic heart failure with mild exacerbation, this is a new diagnosis for this patient. Echocardiogram showed EF of 20-25% with significant wall motion abnormalities. No known cardiac history. I would consult cardiology for further evaluation. Start metoprolol titrate 25 mg twice daily a nd lisinopril 5 mg daily. IV Lasix 40 mg once a day. Repeat chest x-ray within the next day or 2. 3. Hyperlipidemia: Total cholesterol 194, LDL 131. Continue Lipitor 4. GI prophylaxis with IV Pepcid, DVT prophylaxis with subcu Lovenox Today, I reviewed his medication list and lab work results TSH and A1c within normal range PT/OT/speech pathology evaluation Repeat lab work in the morning
--- NOTE | 2020-05-20 15:26 | CONS ---
CONSULTATION CHIEF COMPLAINT: Cardiomyopathy. Mr. Salvador is a 69-year-old gentleman with no significant past medical history who exercises regularly. He runs on a treadmill 3 times a week came into hospital having had a CVA. He had left-sided CVA and his workup had revealed right middle cerebral artery occlusion. Underwent emergent thrombolytic therapy with significant improvement in his neurological deficits. This morning, patient is able to talk and most of his motor deficit is resolved other than mild drooping on the left side of his face. I have been consulted because of an echocardiogram that was done on this admission revealed unexplained cardiomyopathy. An EKG showed sinus rhythm with PVCs. Echo shows an ejection fraction of 20% to 25% with akinetic apex. The echo findings are very suggestive of apical ballooning syndrome, and this could be related to the recent stroke. The patient had troponins that were all negative. Coronavirus test is negative. LDL cholesterol was normal. The patient was started on Zestril, Lopressor and Lasix. Following this, the patient does not have any symptoms suggestive of fluid overload. Does not have any leg edema. Does not have shortness of breath. In fact was running on a treadmill the day before he came back to the hospital. I am going to cut back on the dose of Lasix to 20. JUAN JOSE inhibitors and beta blockers are the right therapeutic agents at this time. Continue aspirin and Lipitor also. The patient will undergo a repeat echocardiogram over the next several weeks to see if his LV function would improve. I would also consider for possible stress test. In an ideal world, we would like to do cardiac catheterization to document absence of coronary artery disease. However, in a patient with recent CVA, cardiac catheterization carries repetitive risk of recurrent stroke. PAST MEDICAL HISTORY: Negative for hypertension, diabetes, dyslipidemia. MEDICATIONS: ALLERGIES: None. FAMILY HISTORY: Negative for premature coronary artery disease. SOCIAL HISTORY: Negative for smoking, EtOH abuse or drug abuse. REVIEW OF SYSTEMS: HEENT is unremarkable. CARDIAC: As described above. RESPIRATORY: As described above. GI: Negative. GENITOURINARY: Negative. ALLERGY/IMMUNOLOGY: Negative. SKIN: Negative. MUSCULOSKELETAL: Negative. ENDOCRINE: Negative. DERM: Negative. CONSTITUTIONAL: Negative. 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 The rest of the system review is not relevant. PHYSICAL EXAMINATION: On exam, heart rate is 60 beats per minute. Blood pressure is 150/80. Respiratory rate 18. O2 saturation is 95%. There is no jugular venous distention. Carotid upstroke is diminished. There is no bruit. Chest exam reveals good air entry bilaterally. Heart exam reveals first and second heart sounds. No gallop. No murmur. No rub. Abdomen is soft, nontender. Examination of extremities did not reveal any edema. Peripheral pulses are felt. LABS: Labs show a TSH of 3.1. Troponins are negative. BNP is 1510. The patient had a CT scan of the brain and MRI and CT angiogram of the cerebral circulation and I reviewed all of them. ASSESSMENT: 1. Acute cerebrovascular accident with left-sided hemiplegia, status post thrombolytics. 2. 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 The patient is not in overt heart failure. He is not having chest pain. He is stable hemodynamically and rhythm muller. He will continue beta blockers, JUAN JOSE inhibitors, statins, and aspirin. I will decrease the dose of Lasix and stop it. The patient is not in congestive heart failure. The elevated BNP is not suggestive of heart failure. MMODL / IJN: [id number] /
--- NOTE | 2020-05-20 15:29 | FL ---
EXAMINATION TYPE: FL barium swallow w video DATE OF EXAM: 05/20/2020 COMPARISON: NONE HISTORY: Dysphasia TECHNIQUE: Fluoroscopy. FINDINGS: Fluoroscopic guidance was provided for the procedure performed in conjunction with the [facility] pathology department. Please see complete report forthcoming from the Speech Pathology departmen t. Various consistencies from thin liquid to solids were administered. Fluoroscopy time 2 minutes 5 seconds. Number of images: 0. On review of images, there is aspiration during the second swallowing of thin liquids. This comes fro m the pooling within the vallecula. Pooling within the vallecula on multiple sequences. There was normal propulsion of the bolus. IMPRESSION: 1. Pooling within the vallecula. 2. Vallecular residuals caused aspiration with thin liquids during one portion of the exam.
--- NOTE | 2020-05-20 18:26 | P.PN ---
Subjective Progress Note Date: 05/20/20 Patient was seen for a follow-up. Patient states his speech is getting better. He walked very well in the hallway. He feels speech is slightly off, states he feels as if something is in the mouth. It still better. Speech therapy has seen the patient. Objective - Vital Signs Vital signs: Vital Signs Temp 98.5 F 05/20/20 08:00 Pulse 73 05/20/20 17:00 Resp 15 05/20/20 17:00 BP 114/84 05/20/20 17:00 Pulse Ox 90 L 05/20/20 17:00 Intake & Output 05/19/20 05/20/20 05/20/20 18:59 06:59 18:59 Intake Total 900 260 160 Output Total 1900 575 750 Balance -1000 -315 -590 Weight 93.3 kg Intake: IV 900 260 160 Sodium Chloride 0.9% 1, 800 000 ml @ 100 mls/hr IV . Q10H [facility] Rx#:[id number] Sodium Chloride 0.9% 1, 100 260 160 000 ml @ 20 mls/hr IV . Q24H [facility] Rx#:[id number] Output: Urine 1900 575 750 Other: Voiding Method Urinal Urinal Urinal # Voids 1 1 0 # Bowel Movements 1 - Exam Patient's mental status, is intact. Speech is mildly dysarthric. No aphasia. Unclear whether her pupils are round and reacting, visual garcia are full, extraocular muscles are intact. Patient has mild left facial asymmetry. Tongue protrudes to the left. Palatal elevation and sensation normal, hearing is normal. Facial sensation is normal on muscle strength testing there is mild cupping of the left hand but no definite pronator drift. The strength is normal in arms and legs. Sensations are equal. Patient's neglect on the left side has much improved. Almost resolved. No ataxia for [id number] testing. Tone and bulk of muscles normal. Patient has brisk reflexes on the left and plantar up on the left. - Labs CBC & Chem 7: 05/20/20 04:41 05/20/20 04:41 Labs: Abnormal Lab Results - Last 24 Hours (Table) 05/20/20 05/20/20 Range/Units 04:41 04:41 WBC 12.4 H (3.8-10.6) k/uL Neutrophils # 8.7 H (1.3-7.7) k/uL Monocytes # 1.2 H (0-1.0) k/uL Chloride 108 H (98-107) mmol/L Carbon Dioxide 20 L (22-30) mmol/L Glucose 102 H (74-99) mg/dL LDL Cholesterol, Calc 131 H (0-99) mg/dL HDL Cholesterol 37 L (40-60) mg/dL Assessment and Plan Assessment: * Acute ischemic stroke due to acute right M2 occlusion. Probable embolic. Rule out cardiac source. Current NIH stroke scale is 1-2. * Hyperlipidemia Plan: * Patient's neurological examination is much improved. * MRI of the brain revealed subacute infarct along the insula, posterior right temporal lobe. No hemorrhagic conversion. * MRA of the brain revealed patent [place] of [place]. Interval recanalized M2 segment right ICA. * 2-D echo showed left-ventricule is mildly dilated. Borderline concentric LVH, overall left ventricular systolic function is severely impaired with EF is between 20-25%. Basal inferior, basal inferioroseptal, mid inferior, mid inferior lateral and apical inferior lateral wall motion are akinetic. Left atrium is severely dilated. Cardiology seen the patient, recommending antiplatelet medication. Consider DAVIDA rule out embolic source. * Hemoglobin A1c 5.1, lipid panel with total cholesterol 194, LDL 131, HDL 37 and triglycerides 129. Agree with Lipitor 80 mg. * Patient started on aspirin 325 mg daily. * Continue PT OT, speech therapy.
[2020-05-20] MEDS: ATORVASTATIN 80 MG TAB PO SCH (20:14)
[2020-05-21 00:04] LABS: Magnesium 2.2 mg/dL (1.6-2.3); Phosphorus 4.1 mg/dL (2.5-4.5)
[2020-05-21 00:17] LABS: Potassium 4.8 mmol/L (3.5-5.1)
[2020-05-21] MEDS: SODIUM CHLORIDE 0.9% 1,000 ML IV SCH (03:37)
[2020-05-21 04:05] LABS: Basophils # (A) 0.1 k/uL (0-0.2); Basophils % (A) 1 %; Eosinophils # (A) 0.3 k/uL (0-0.7); Eosinophils % (A) 3 %; HGB 16.3 gm/dL (13.0-17.5); Lymphocytes # (A) 2.2 k/uL (1.0-4.8); Lymphocytes % (A) 18 %; MCH 31.4 pg (25.0-35.0); MCHC 33.3 g/dL (31.0-37.0); MCV 94.2 fL (80.0-100.0); Monocytes # (A) 1.2 k/uL (0-1.0); Monocytes % (A) 10 %; Neutrophils # (A) 8.3 k/uL (1.3-7.7); Neutrophils % (A) 67 %; Platelet Count 163 k/uL (150-450); RDW 12.9 % (11.5-15.5); WBC 12.4 k/uL (3.8-10.6)
[2020-05-21 04:18] LABS: African American GFR (CKD) >90 (>60 ml/min/1.73 sqM); Anion Gap 9 mmol/L; Blood Urea Nitrogen 22 mg/dL (9-20); Calcium 9.5 mg/dL (8.4-10.2); Carbon Dioxide 23 mmol/L (22-30); Chloride 106 mmol/L (98-107); Glucose 92 mg/dL (74-99); Non-African American GFR(CKD) 86 (>60 ml/min/1.73 sqM); Sodium 138 mmol/L (137-145)
[2020-05-21] MEDS ORDERED: FUROSEMIDE 40 MG TAB PO SCH (09:00)
[2020-05-21] MEDS: FUROSEMIDE 20 MG TAB PO SCH (09:19)
[2020-05-21] MEDS: FAMOTIDINE 20 MG/2 ML VIAL IV SCH ×2 (09:19→21:03)
[2020-05-21] MEDS: lisinopriL 5 MG TAB PO SCH (09:19)
[2020-05-21] MEDS: METOPROLOL TARTRATE 25 MG TAB PO SCH ×2 (09:19→21:03)
[2020-05-21] MEDS: ASPIRIN 325 MG TAB PO SCH (09:19)
[2020-05-21] MEDS: MULTIVITAMINS, THERA 1 EACH TAB PO SCH (09:19)
[2020-05-21] MEDS: NON FORMULARY DRUG (Omega-3 Fatty Acids/Fish Oil [Fish Oil 1,000 Mg Softgel] 1 EACH Capsul PO SCH (09:21)
--- NOTE | 2020-05-21 09:46 | P.PN ---
Subjective Progress Note Date: 05/21/20 This is a 69-year-old male patient who came into the emergency room with left-s ided weakness of an acute sudden onset the started midnight yesterday and within less than an hour he was brought into the emergency department. He did have some headache along with left upper extremity weakness and numbness while he was taking a shower. No history of any trauma. He was evaluated in the emergency department. CTA of the brain was done and showed no acute abnormalities and the neck or the carotids. No intracranial abnormalities involving the internal carotid, or the anterior cerebral. There was occlusion of the M2 branch of the right middle cerebral artery without any aneurysm formation. The right posterior cerebral and the vertebral arteries unremarkable. Left-sided arteries also unremarkable. The patient symptoms most consistent with an acute ischemic stroke. Neuro interventional list was contacted and the patient was given TPA in the emergency room following that he was admitted to the intensive care unit. His course in the emergency was essentially uneventful and he was moved to the ICU. His blood work was essentially within normal limits. A platelet count of 171. Hemoglobin was 16.1. Correlation profile is within normal limits. Electrodes are all within normal limits. Renal function was within normal limits. The mccray virus/Covid 19 testing was negative. The EKG showed a normal sinus rhythm. Nonspecific ST segment changes were seen. His blood pressure also remained stable. Echocardiogram was done today and the patient was found to have an ejection fraction of 20-25%. Note that he has no previous history of congestion heart failure. On today's evaluation, the left side is all. His speech was clear. No shortness of breath. Cardiac rhythm was sinus. He has been fairly active. He is currently on high dose statins with Lipitor 80 mg by mouth daily. He is on aspirin 325 mg by mouth daily. He is also started on metoprolol 25 mg by mouth twice a day and Lasix 40 mg IV every day. On today's evaluation, 05/20/2020 the patient is stable. No new onset neurologic deficits. Motor function left upper extremity strong. Speech is adequate. A speech evaluation is being done today. He is hemodynamically stable. Cardiac rhythm is sinus. No hypotension. He is on room air oxygen. He is on aspirin. On Lipitor. He is post thrombolytic treatment. Echocardiogram was noted. He has probably ischemic cardiomyopathy with an ejection fraction of 20-25% and the patient was started on a combination of metoprolol 25 mg twice a day, also on Lasix 40 mg IV once a day which will be switched to oral. 05/20/20, the patient has some minimal residual left facial weakness/blue. Otherwise has adequate motor function over extremities. No chest pain. No shortness of breath. No altered mentation. No nausea or vomiting. No d izziness. No vertigo. . He is also hemodynamically stable in a sinus rhythm for now. He remains on aspirin and high-dose statins in the form of Lipitor 80 mg by mouth daily. He is also on metoprolol 25 mg by mouth twice a day and he is on lisinopril 5 mg by mouth daily. Lasix is still oral 20 mg daily. Cardiology wants to catheterization at a later stage once more stable. A DAVIDA may be also useful to evaluate his underlying embolic/thrombotic stroke.. A bedside swallow evaluation was fine. A modified barium swallow was done and it showed pooling within the vallecula and some residuals that caused aspiration with thin liquids Objective - Vital Signs Vital signs: Vital Signs Temp 97.8 F 05/21/20 03:36 Pulse 82 05/21/20 08:00 Resp 22 05/21/20 08:00 BP 128/84 05/21/20 08:00 Pulse Ox 94 L 05/21/20 08:00 Intake & Output 05/20/20 05/21/20 05/21/20 18:59 06:59 18:59 Intake Total 160 120 Output Total 750 450 Balance -590 -330 Weight 92 kg Intake: IV 160 Sodium Chloride 0.9% 1, 160 000 ml @ 20 mls/hr IV . Q24H [facility] Rx#:[id number] Oral 120 Output: Urine 750 450 Other: Voiding Method Urinal Urinal Urinal # Voids 0 - Exam The patient appeared well nourished and normally developed. Vital signs as documented. Head exam is unremarkable. No scleral icterus or corneal arcus noted . Neck is without jugular venous distension, thyromegaly, or carotid bruits. Carotid upstrokes are brisk bilaterally. Lungs are clear to auscultation and percussion. Cardiac exam reveals the PMI to be normally sized and situated. Rhythm is regular. First and second heart sounds normal. No murmurs, rubs or gallops. Abdominal exam reveals normal bowel sounds, no masses, no organomegaly and no aortic enlargement. Extremities are nonedematous and both femoral and pedal pulses are normal.Examination of the skin revealed no evidence of significant rashes, suspicious appearing nevi or other concerning lesions. Neurologic exam shows adequate water function the left upper extremity and the motor function essentially symmetrical. Cranial nerves are intact. There was some left facial droop which is improved. Tongue is midline. Pupils are equal and reactive to light. No nystagmus. No Babinski. No clonus. Equal and symmetrical reflexes. - Labs CBC & Chem 7: 05/21/20 03:25 05/21/20 03:25 Labs: Abnormal Lab Results - Last 24 Hours (Table) 05/21/20 05/21/20 Range/Units 03:25 03:25 WBC 12.4 H (3.8-10.6) k/uL Neutrophils # 8.3 H (1.3-7.7) k/uL Monocytes # 1.2 H (0-1.0) k/uL BUN 22 H (9-20) mg/dL Assessment and Plan Plan: [address]ogram showing obstruction/occlusion of the M2 branch of RCA and the patient presented with left sided weakness involving the left face and left upper extremity. The patient's post-TPA with good results with subsequent recovery of the motor function left upper extremity. He is currently being monitored in the intensive care unit. Hemodynamically stable, minimal facial weakness is present on today's evaluation and the patient is adequate motor functions and he remains hemodynamically stable. 2 systolic heart failure with an ejection fraction of 20-25% in addition to segmental wall motion abnormality, consider underlying ischemic cardiomyopathy especially with segmental wall motion changes 3 colon cancer 4 suspected UTI with Morganella, currently on IV Rocephin Plan Neurologically stable Aspirin 325 mg by mouth daily High-dose statins with Lipitor 80 mg by mouth daily Agree on metoprolol 25 mg by mouth twice a day. Lisinopril 5 mg by mouth daily, Lasix 20 mg by mouth daily Will need a cardiology consultation with subsequent cardiac catheterization rule out underlying ischemic cardiomyopathy underlying coronary artery disease MRI of the brain is consistent with an ischemic subacute CVA neurology consultation is appreciated We'll follow, will be transferred to [facility] or possibly home today. I'll evaluation was grossly. He is ambulating. He has no Hendricks catheter for now.
--- NOTE | 2020-05-21 09:51 | PN ---
PROGRESS NOTE This is a 69-year-old gentleman that is admitted to hospital with left-sided CVA secondary to ischemic stroke in the right middle cerebral artery distribution that we have been consulted because of cardiomyopathy noted on the echocardiogram. The patient is doing well and is free of symptoms. He remains in sinus rhythm. PHYSICAL EXAMINATION: On exam, afebrile. Heart rate is 60 beats per minute. Blood pressure is 112/72. Respiratory rate is 15. O2 saturation is 95% on room air. There is no jugular venous distention. Chest exam reveals good air entry bilaterally. Heart exam reveals first and second heart sounds. No gallop. No murmur. Abdomen is soft. Examination of extremities did not reveal any edema. Peripheral pulses are felt. LABS: Labs showed that the hemoglobin is 16.3, platelet count is 160. Potassium is 4. Creatinine is 0.8. ASSESSMENT: 1. Cerebrovascular accident with left hemiparesis, status post thrombolytic therapy with significant improvement in motor deficit. 2. Cardiomyopathy, probably related to apical ballooning syndrome in the context of his cerebrovascular accident. The patient is on JUAN JOSE inhibitors, beta blockers. Does not have any symptoms of congestive heart failure. I will leave him on his current medications. MMODL / IJN: [id number] /
--- NOTE | 2020-05-21 13:15 | P.PN ---
Subjective Progress Note Date: 05/21/20 Patient is doing well today. No acute events overnight reported by nursing staff. Patient denies any shortness of breath Objective - Vital Signs Vital signs: Vital Signs Temp 98 F 05/21/20 12:00 Pulse 58 L 05/21/20 12:00 Resp 18 05/21/20 12:00 BP 126/87 05/21/20 12:00 Pulse Ox 96 05/21/20 12:00 Intake & Output 05/20/20 05/21/20 05/21/20 18:59 06:59 18:59 Intake Total 160 120 Output Total 750 450 150 Balance -590 -330 -150 Weight 92 kg Intake: IV 160 Sodium Chloride 0.9% 1, 160 000 ml @ 20 mls/hr IV . Q24H [facility] Rx#:[id number] Oral 120 Output: Urine 750 450 150 Other: Voiding Method Urinal Urinal Urinal # Voids 0 - Exam General: The patient is awake and alert, in no distress Eye: there is normal conjunctiva bilaterally. Neck: The neck is supple, there is no JVD. Cardiovascular: Normal S1-S2, no S3-S4, no murmurs. Respiratory: Lungs clear to auscultation bilaterally Gastrointestinal: Abdomen is soft, nontender Musculoskeletal: There is no pedal edema. Neurological:. Speech is normal. Skin: Skin is warm and dry - Labs CBC & Chem 7: 05/21/20 03:25 05/21/20 03:25 Labs: Abnormal Lab Results - Last 24 Hours (Table) 05/21/20 05/21/20 Range/Units 03:25 03:25 WBC 12.4 H (3.8-10.6) k/uL Neutrophils # 8.3 H (1.3-7.7) k/uL Monocytes # 1.2 H (0-1.0) k/uL BUN 22 H (9-20) mg/dL Assessment and Plan Assessment: This is a 69-year-old male with past medical history noted below who presented to the hospital with sudden onset dizziness and left-sided weakness. Patient was evaluated in the ER and admitted to the hospital for further management of his medical problems noted below. 1. Acute stroke, status post TPA in the ER. MRI of the brain showed subacute infarct involving the right temporal lobe. Computed tomography scan of the head on presentation in the ER showed possible evidence of occlusion of M2 branch of the right MCA this appeared on MRA with interval recanalized M2 segment right in ternal carotid artery. CT angiogram of the head and neck with no hemodynamically significant stenosis. Neurology consulted, appreciate recommendations. Continue aspirin and Lipitor. Echocardiogram showed no evidence of intracardiac source of stroke. TSH and A1c within normal range 2. Systolic and diastolic heart failure with mild exacerbation, this is a new diagnosis for this patient. Echocardiogram showed EF of 20-25% with significant wall motion abnormalities. No known cardiac history. I would consult cardiology for further evaluation. Start metoprolol titrate 25 mg twice daily and lisinopril 5 mg daily. IV Lasix 40 mg once a day. Repeat chest x-ray within the next day or 2. 3. Hyperlipidemia: Total cholesterol 194, LDL 131. Continue Lipitor 4. GI prophylaxis with IV Pepcid, DVT prophylaxis with subcu Lovenox Today, I reviewed his medication list and lab work results I discussed with cardiology to schedule DAVIDA tomorrow Anticipated discharge home tomorrow if everything looks good on DAVIDA
--- NOTE | 2020-05-21 14:08 | XR ---
EXAMINATION TYPE: XR chest 2V DATE OF EXAM: 05/21/2020 COMPARISON: 05/19/2020 TECHNIQUE: PA and lateral views submitted. HISTORY: Shortness of breath FINDINGS: The lungs are clear and there is no pneumothorax, pleural effusion, or focal pneumonia. Degenerativ e change of the spine. Hyperinflation suggests COPD. Contrast within the colon. IMPRESSION: 1. COPD. No overt failure.
--- NOTE | 2020-05-21 15:12 | P.PN ---
Subjective Progress Note Date: 05/21/20 Patient was seen for a follow-up. Patient states his speech is getting better. He walked very well in the hallway. He feels speech is slightly off, although feels less something in his mouth while talking, which he feels is better than yesterday. Speech therapy has seen the patient. His swallowing has improved. Denies feeling lightheadedness, dizziness and balance is better. Objective - Vital Signs Vital signs: Vital Signs Temp 98 F 05/21/20 12:00 Pulse 58 L 05/21/20 12:00 Resp 18 05/21/20 12:00 BP 126/87 05/21/20 12:00 Pulse Ox 96 05/21/20 12:00 Intake & Output 05/20/20 05/21/20 05/21/20 18:59 06:59 18:59 Intake Total 160 120 Output Total 750 450 150 Balance -590 -330 -150 Weight 92 kg Intake: IV 160 Sodium Chloride 0.9% 1, 160 000 ml @ 20 mls/hr IV . Q24H [facility] Rx#:[id number] Oral 120 Output: Urine 750 450 150 Other: Voiding Method Urinal Urinal Urinal # Voids 0 - Exam Patient's mental status, is intact. Speech is mildly dysarthric, better than yesterday. No aphasia. Pupils are round and reacting, visual garcia are full, extraocular muscles are intact. Patient has mild left facial asymmetry. Tongue protrudes to the left. Palatal elevation and sensation normal, hearing is normal. Facial sensation is normal. On muscle strength testing there is no pronator drift. The strength is normal in arms and legs. Sensations are equal. Patient's neglect on the left side has much improved, although still minimally present. No ataxia for gfpeie-[id number] testing. Tone and bulk of muscles normal. Patient has brisk reflexes on the left and plantar are downgoing bilaterally. He states he is walking better. - Labs CBC & Chem 7: 05/21/20 03:25 05/21/20 03:25 Labs: Abnormal Lab Results - Last 24 Hours (Table) 05/21/20 05/21/20 Range/Units 03:25 03:25 WBC 12.4 H (3.8-10.6) k/uL Neutrophils # 8.3 H (1.3-7.7) k/uL Monocytes # 1.2 H (0-1.0) k/uL BUN 22 H (9-20) mg/dL Assessment and Plan Assessment: * Acute ischemic stroke due to acute right M2 occlusion. Probable embolic. Rule out cardiac source. Current NIH stroke scale is 1-2. Repeat MRA of the brain following thrombolysis shows recannulization of the right M2 segment. Probable cardioembolic source. * Hyperlipidemia Plan: * Patient's neurological examination is much improved. * MRI of the brain revealed subacute infarct along the insula, posterior right temporal lobe. No hemorrhagic conversion. * MRA of the brain revealed patent [place] of [place]. Interval recanalized M2 segment right ICA. * 2-D echo showed left-ventricule is mildly dilated. Borderline concentric LVH, overall left ventricular systolic function is severely impaired with EF is between 20-25%. Basal inferior, basal inferioroseptal, mid inferior, mid inferior lateral and apical inferior lateral wall motion are akinetic. Left atrium is severely dilated. Cardiology seen the patient, recommending antiplatelet medication. Patient undergoing DAVIDA in a.m. rule out embolic source. * Hemoglobin A1c 5.1, lipid panel with total cholesterol 194, LDL 131, HDL 37 and triglycerides 129. Agree with Lipitor 80 mg. * Patient started on aspirin 325 mg daily. * Continue PT OT, speech therapy. * Dr. Davis covering over the weekend.
[2020-05-21] MEDS: ATORVASTATIN 80 MG TAB PO SCH (21:03)
[2020-05-22] MEDS: SODIUM CHLORIDE 0.9% 1,000 ML IV SCH (06:48)
[2020-05-22 08:14] VITALS: TEMP 97.8
[2020-05-22] MEDS: lisinopriL 5 MG TAB PO SCH (08:15)
[2020-05-22] MEDS: FAMOTIDINE 20 MG/2 ML VIAL IV SCH (08:15)
[2020-05-22] MEDS: NON FORMULARY DRUG (Omega-3 Fatty Acids/Fish Oil [Fish Oil 1,000 Mg Softgel] 1 EACH Capsul PO SCH (08:15)
[2020-05-22] MEDS: METOPROLOL TARTRATE 25 MG TAB PO SCH (08:15)
[2020-05-22] MEDS: ASPIRIN 325 MG TAB PO SCH (08:15)
[2020-05-22] MEDS: FUROSEMIDE 20 MG TAB PO SCH (08:15)
[2020-05-22] MEDS: MULTIVITAMINS, THERA 1 EACH TAB PO SCH (08:15)
[2020-05-22] MEDS ORDERED: fentaNYL (PF) 50 MCG/ML 2 ML AMP ONE (09:36)
[2020-05-22] MEDS ORDERED: SODIUM CHLORIDE 0.9% 500 ML 500 ML IV ONE (09:53)
[2020-05-22] MEDS ORDERED: BENZOCAINE SPRAY 1 CAN TOPICAL ONE (09:55)
[2020-05-22] MEDS ORDERED: fentaNYL (PF) 50 MCG/ML 2 ML AMP IV ONE (10:01)
[2020-05-22] MEDS ORDERED: MIDAZOLAM 2 MG/2 ML VIAL IV ONE (10:01)
[2020-05-22 10:11] VITALS: BP 133/76; PULSE 86; RESP 16
--- NOTE | 2020-05-22 11:00 | P.DS ---
Providers Date of admission: 05/19/20 02:50 Expected date of discharge: 05/22/20 Attending physician: Whitley Pham MD Consults: 05/19/20 02:51 Consult Physician Routine Consulting Provider: Missy Ernst Consult Reason/Comments: Acute ischemic stroke. Do you want consulting provider notified?: Already Contacted Consult Physician Routine Consulting Provider: Dodie Cote Consult Reason/Comments: Acute ischemic stroke with TPA administration Do you want consulting provider notified?: Yes 05/19/20 13:32 Consult Physician Routine Consulting Provider: Christopher Parra Consult Reason/Comments: New onset CHF Do you want consulting provider notified?: Yes Primary care physician: Stated None Hospital Course: This is a 69-year-old male with past medical history noted below who presented to the hospital with sudden onset dizziness and left-sided weakness. Patient was evaluated in the ER and admitted to the hospital for further management of his medical problems noted below. 1. Acute stroke, status post TPA in the ER. MRI of the brain showed subacute infarct involving the right temporal lobe. Computed tomography scan of the head on presentation in the ER showed possible evidence of occlusion of M2 branch of the right MCA this appeared on MRA with interval recanalized M2 segment right internal carotid artery. CT angiogram of the head and neck with no hemodynamically significant stenosis. Neurology consulted, appreciate recommendations. Continue aspirin and Lipitor. Echocardiogram showed no evidence of intracardiac source of stroke. TSH and A1c within normal range. Patient underwent DAVIDA showing no evidence of intracardiac shunt or thrombus. 2. Systolic and diastolic heart failure with mild exacerbation, this is a new diagnosis for this patient. Echocardiogram showed EF of 20-25% with significant wall motion abnormalities. Patient was seen and evaluated by cardiology. Thought to be attributed to stress-induced cardiomyopathy. No known cardiac history. I Started metoprolol titrate 25 mg twice daily and lisinopril 5 mg daily. Lasix 20 mg once a day. Repeat chest x-ray resolution of mild pulmonary edema 3. Hyperlipidemia: Total cholesterol 194, LDL 131. Continue Lipitor 80 mg at bedtime Patient was seen and evaluated by PT/OT. He will be discharged home in a stable condition. He will follow-up with cardiology and his primary care physician in the office as directed. Patient Condition at Discharge: Fair Plan - Discharge Summary Discharge Rx Participant: No New Discharge Prescriptions: New Aspirin 325 mg PO DAILY #30 tab Furosemide [Lasix] 20 mg PO DAILY #30 tab Atorvastatin [Lipitor] 80 mg PO HS #30 tab Metoprolol Tartrate [Lopressor] 25 mg PO BID #60 tab lisinopriL [Zestril] 5 mg PO DAILY #30 tab Continue Multivitamins, Thera [Multivitamin (formulary)] 1 tab PO DAILY Prostrate Supplement 1 tab PO DAILY [place]-3 Fatty Acids/Fish Oil [Fish Oil 1,000 mg Softgel] 1 cap PO DAILY Discharge Medication List Multivitamins, Thera [Multivitamin (formulary)] 1 tab PO DAILY 05/19/20 [History] [place]-3 Fatty Acids/Fish Oil [Fish Oil 1,000 mg Softgel] 1 cap PO DAILY 05/19/20 [History] Prostrate Supplement 1 tab PO DAILY 05/19/20 [History] Aspirin 325 mg PO DAILY #30 tab 05/22/20 [Rx] Atorvastatin [Lipitor] 80 mg PO HS #30 tab 05/22/20 [Rx] Furosemide [Lasix] 20 mg PO DAILY #30 tab 05/22/20 [Rx] Metoprolol Tartrate [Lopressor] 25 mg PO BID #60 tab 05/22/20 [Rx] lisinopriL [Zestril] 5 mg PO DAILY #30 tab 05/22/20 [Rx] Follow up Appointment(s)/Referral(s): None,Stated [Primary Care Provider] - 1-2 days Foster Zelaya MD [STAFF PHYSICIAN] - 2 Weeks Discharge Disposition: HOME SELF-CARE
--- NOTE | 2020-05-22 12:27 | ECHOT ---
TRANSESOPHAGEAL ECHOCARDIOGRAM INDICATIONS: CVA. PROCEDURE NOTE: After obtaining informed consent, transesophageal echocardiogram is performed in left lateral position using an Omniplane probe. Local and IV sedation were obtained using Xylocaine spray, 2 mg of Versed and 25 mcg of fentanyl. The patient tolerated the procedure well without any obvious immediate complications. Patient received moderate conscious sedation. Total sedation time was 10 minutes. DAVIDA was performed. 2D, M-mode and color Doppler evaluation was done. FINDINGS: 1. There is no intracardiac thrombus within the left atrial appendage, left atrium, right atrium, right ventricle. 2. Interatrial septum: There is no evidence of mutx-ay-domzx shunt by color-flow Doppler or uwzzh-nx-rnny shunt by agitated saline contrast study. 3. Left atrium appears moderately enlarged. 4. Right atrium and right ventricle within normal limits. 5. Left ventricle appears mildly dilated. Anterior wall appears hypokinetic. There is severe LV systolic dysfunction with an ejection fraction of around 30-35%. There is no apical thrombus. The mitral valve shows moderate mitral regurgitation. There is mild tricuspid regurgitation. 6. Aortic valve is a 3-leaflet valve. There is no evidence of aortic stenosis or regurgitation. 7. Aortic root appears within normal limits. There is mild atherosclerotic changes noted involving the aorta. CONCLUSIONS: 1. No intracardiac thrombus. 2. No evidence of shunting across the septum. 3. Severe left ventricular systolic dysfunction. MMODL / IJN: [id number] /
== END 2020-05-22 12:26 | disposition home or self-care (01) | DRG 61 ==
LOC: EC 00:49 → 2SICU 02:50 → 3SCARD 05-21 17:25
PROVIDERS: ADMIT Internal Medicine; ATTEND Internal Medicine
DX: I63.411 Cerebral infarction due to embolism of right middle cerebral artery (principal); I50.43 Acute on chronic combined systolic (congestive) and diastolic (congestive) heart failure; G81.94 Hemiplegia, unspecified affecting left nondominant side; I51.81 Takotsubo syndrome; N39.0 Urinary tract infection, site not specified; E78.5 Hyperlipidemia, unspecified; E11.9 Type 2 diabetes mellitus without complications; Z20.822 Contact with and (suspected) exposure to COVID-19; I11.0 Hypertensive heart disease with heart failure; I25.10 Atherosclerotic heart disease of native coronary artery without angina pectoris; I25.5 Ischemic cardiomyopathy; R29.703 NIHSS score 3; D75.1 Secondary polycythemia; I49.3 Ventricular premature depolarization; R29.810 Facial weakness; Z85.038 Personal history of other malignant neoplasm of large intestine; Z82.49 Family history of ischemic heart disease and other diseases of the circulatory system; Z79.899 Other long term (current) drug therapy; Z79.82 Long term (current) use of aspirin
CPT/HCPCS: 36415; 37195; 70450; 70496; 70498; 70544; 70551; 71045; 71046; 74230; 80048; 80053; 80061; 83036; 83735; 83880; 84100; 84132; 84443; 84484; 85025; 85610; 85730; 87635; 93005; 93306; 93312; 93320; 93325; 99291

== ENCOUNTER 2020-08-05 06:11 | Day surgery (SDC) | payer MEDICARE ==
[2020-08-04 10:31] VITALS: BMI 31.0
[~2020-08-05 06:11] MED LIST: ALPRAZolam 0.25 MG TAB PO PRN; ALPRAZolam 0.5 MG TAB PO PRN; ASPIRIN 325 MG TAB PO STA; ATORVASTATIN 80 MG TAB PO STA; HEPARIN SODIUM,PORCINE 10,000 UNIT in SODIUM CHLORIDE 0.9% 1,000 ML IRRIGATION PRN; HEPARIN SODIUM,PORCINE 2,500 UNIT in SODIUM CHLORIDE 0.9% 250 ML IRRIGATION PRN; NITROGLYCERIN SL TABS 0.4 MG TAB SUBLINGUAL PRN; SODIUM CHLORIDE 0.9% 1,000 ML in EMPTY BAG 1 BAG IV ONE
[2020-08-05 06:48] LABS: Basophils # (A) 0.1 k/uL (0-0.2); Basophils % (A) 1 %; Eosinophils # (A) 0.2 k/uL (0-0.7); Eosinophils % (A) 2 %; Lymphocytes % (A) 24 %; MCH 32.1 pg (25.0-35.0); MCHC 34.7 g/dL (31.0-37.0); MCV 92.4 fL (80.0-100.0); Mean Platelet Volume 9.6; Monocytes # (A) 0.7 k/uL (0-1.0); Monocytes % (A) 8 %; Neutrophils # (A) 5.2 k/uL (1.3-7.7); Neutrophils % (A) 64 %; Platelet Count 151 k/uL (150-450); RBC 4.98 m/uL (4.30-5.90); RDW 13.3 % (11.5-15.5); WBC 8.2 k/uL (3.8-10.6)
[2020-08-05 06:56] VITALS: RESP 18; TEMP 98.4
[2020-08-05 07:04] LABS: African American GFR (CKD) >90 (>60 ml/min/1.73 sqM); Anion Gap 8 mmol/L; Blood Urea Nitrogen 14 mg/dL (9-20); Calcium 9.3 mg/dL (8.4-10.2); Carbon Dioxide 24 mmol/L (22-30); Chloride 110 mmol/L (98-107); Glucose 96 mg/dL (74-99); Non-African American GFR(CKD) >90 (>60 ml/min/1.73 sqM); Potassium 3.8 mmol/L (3.5-5.1); Sodium 142 mmol/L (137-145)
[2020-08-05] MEDS ORDERED: LIDOCAINE 1% INJ 10MG/ML (20 ML MDV) ONE (07:10)
[2020-08-05] MEDS ORDERED: fentaNYL (PF) 50 MCG/ML 2 ML AMP ONE (07:31)
[2020-08-05] MEDS ORDERED: MIDAZOLAM 2 MG/2 ML VIAL IV ONE (07:40)
[2020-08-05] MEDS ORDERED: LIDOCAINE 1% INJ 10MG/ML (20 ML MDV) SQ ONE (07:40)
[2020-08-05] MEDS ORDERED: fentaNYL (PF) 50 MCG/ML 2 ML AMP IV ONE (07:40)
[2020-08-05] MEDS ORDERED: IOPAMIDOL-370 125ML BTL INJ ONE (07:54)
[2020-08-05] MEDS ORDERED: RX INFO: IV CONTRAST WAS GIVEN 1 EACH MISC MISCELLANE PRN (08:05)
[2020-08-05] MEDS ORDERED: SODIUM CHLORIDE 0.9% 1,000 ML IV SCH (08:15)
--- NOTE | 2020-08-05 09:04 | CC ---
CARDIAC CATHETERIZATION REPORT INDICATION: New onset ischemic cardiomyopathy. PROCEDURE NOTE: After obtaining informed consent, left heart catheterization and coronary angiogram were performed via the right femoral artery using standard Sherita catheters. Patient tolerated the procedure well without any obvious immediate complications. A femoral angiogram was performed and Angio-Seal was deployed for hemostasis. Patient received moderate conscious sedation. Total sedation time was 20 minutes. FINDINGS: 1. HEMODYNAMICS: Left ventricular end-diastolic pressure is 16 mm. There is no significant gradient across the aortic valve. 2. LEFT VENTRICULOGRAM: Left ventriculogram was not performed. 3. ANGIOGRAPHIC DATA: Left Main Coronary Artery: Left main coronary artery is a normal-sized vessel and is free of stenosis. Divides into left anterior descending coronary artery and circumflex coronary artery. LAD shows mild nonobstructive coronary artery disease. The first diagonal branch has a 40% to 50% ostial stenosis. Circumflex coronary artery is a codominant system and is free of significant disease. Right coronary artery is a large codominant vessel and is free of significant disease. CONCLUSIONS: 1. Moderate stenosis involving the ostial portion of the diagonal branch. 2. Mild nonobstructive disease involving LAD. PLAN: I believe the apical myocardial infarction noted on the echo and stress test probably represents spontaneous recanalization of the LAD after a myocardial infarction which probably happened in the setting of the HI. The patient will continue with medical therapy. MMODL / IJN: [id number] /
[2020-08-05] MEDS ORDERED: HEPARIN SODIUM 1,000 UN/ML (10ML VL) ONE (12:17)
[2020-08-05 13:07] VITALS: BP 141/58; PULSE 61
== END 2020-08-05 13:29 | disposition home or self-care (01) ==
LOC: CATHCVL 06:11
PROVIDERS: ATTEND Internal Medicine Cardiovascular Disease
DX: I25.10 Atherosclerotic heart disease of native coronary artery without angina pectoris (principal); I10 Essential (primary) hypertension; E78.2 Mixed hyperlipidemia; Z86.73 Personal history of transient ischemic attack (TIA), and cerebral infarction without residual deficits; Z85.038 Personal history of other malignant neoplasm of large intestine; Z98.890 Other specified postprocedural states; Z79.82 Long term (current) use of aspirin; Z79.899 Other long term (current) drug therapy
CPT/HCPCS: 93458; 80048; 85025; 87635; C1769 ×2; C1760; C1894; J2250; J2001; J3010; Q9967

== ENCOUNTER 2020-12-08 06:08 | Day surgery (SDC) | payer MEDICARE ==
[2020-12-02 16:08] VITALS: BMI 30.4
[2020-12-08] MEDS ORDERED: SODIUM CHLORIDE 0.9% 1,000 ML IV ONE (06:53)
[2020-12-08] MEDS ORDERED: ceFAZolin 1 GM in SODIUM CHLORIDE 0.9% 250 ML IRRIGATION PRN (07:00)
[2020-12-08 07:44] LABS: Basophils % (A) 1 %; Eosinophils # (A) 0.2 k/uL (0-0.7); Eosinophils % (A) 2 %; HCT 49.6 % (39.0-53.0); HGB 15.6 gm/dL (13.0-17.5); Lymphocytes # (A) 1.9 k/uL (1.0-4.8); Lymphocytes % (A) 22 %; MCH 31.3 pg (25.0-35.0); MCHC 31.4 g/dL (31.0-37.0); MCV 99.8 fL (80.0-100.0); Mean Platelet Volume 10.3; Monocytes # (A) 0.7 k/uL (0-1.0); Monocytes % (A) 8 %; Neutrophils # (A) 5.6 k/uL (1.3-7.7); Neutrophils % (A) 65 %; Platelet Count 168 k/uL (150-450); RBC 4.97 m/uL (4.30-5.90); RDW 13.7 % (11.5-15.5); WBC 8.7 k/uL (3.8-10.6)
[2020-12-08 07:46] LABS: African American GFR (CKD) >90 (>60 ml/min/1.73 sqM); Anion Gap 9 mmol/L; Blood Urea Nitrogen 15 mg/dL (9-20); Calcium 9.7 mg/dL (8.4-10.2); Carbon Dioxide 25 mmol/L (22-30); Chloride 107 mmol/L (98-107); Glucose 88 mg/dL (74-99); Non-African American GFR(CKD) >90 (>60 ml/min/1.73 sqM); Sodium 141 mmol/L (137-145)
[2020-12-08] MEDS ORDERED: MIDAZOLAM 2 MG/2 ML VIAL ONE (07:49)
[2020-12-08] MEDS ORDERED: fentaNYL (PF) 50 MCG/ML 2 ML AMP ONE (07:49)
[2020-12-08] MEDS ORDERED: PROPOFOL 10 MG/ML 20 ML VIAL IV ONE (07:49)
[2020-12-08] MEDS ORDERED: IOPAMIDOL-250 50ML BTL IV ONE (08:19)
[2020-12-08] MEDS ORDERED: LIDOCAINE 1% INJ 10MG/ML (20 ML MDV) SQ ONE ×2 (08:32→09:02)
[2020-12-08] MEDS ORDERED: ACETAMINOPHEN TAB 325 MG TAB PO PRN (09:25)
--- NOTE | 2020-12-08 09:37 | P.PCN ---
Date of Procedure: 12/08/20 Preoperative Diagnosis: Nonischemic cardiomyopathy, CHF class II Postoperative Diagnosis: The same Procedure(s) Performed: Single-chamber AICD implantation Description of Procedure: HISTORY: This is a 70-year-old gentleman with history of nonischemic cardiomyopathy and chronic CHF CHF class II, was referred by Dr. Zelaya for prophylactic AICD implantation. Patient has mild coronary artery disease. CONSENT: Dr. Zelaya has discussed the risks, benefits and alternative therapies for the above-mentioned procedure and for both sedation/analgesia as well as necessary blood product administration, if indicated, as they pertain to this patient. The patient has indicated understanding and acceptance of the risks and procedures discussed. PROCEDURE: Patient was brought to the lab in a fasting state. Patient was prepped and draped in the usual fashion. Patient was given IV sedation with fentanyl and Versed. The skin below the left clavicle was infiltrated with lidocaine. An incision was made parallel to deltopectoral groove was deepened until the pectoral fascia was exposed. A pocket was created by blunt dissection and cautery. Axillary venography was performed to delineate the course of the axillary vein. A single venous stick performed into extrathoracic portion of the axillary vein and a single sheath was advanced over the guidewires and left in subclavian vein. Conscious Sedation: Provided by department of anesthesia Duration 50minutes LEADS: VENTRICULAR: This is manufactured by [employer]. Model number is [id number] and the serial number is [id number] The ventricular lead is maneuvered l with help of a straight and curved stylets into the left ventricle apical region. Satisfactory position was obtained and threshold measurements were made. THE DEVICE: This is manufactured by [employer]. Model number is [id number] and the serial number is [id number] THRESHOLDS: VENTRICLE: The minimum patient threshold is 0.6 V at pulse width of 0.5 impedance of 531 R-wave: 10 V. DFT TESTING: Patient was given IV sedation by department of anesthesia. The ventricular fibrillation was induced with T shock. This was appropriately detected and a 15 J shock converted patient back to sinus rhythm. Patient tolerated the procedure well The leads and pulse generator remained in the pocket after it was washed with antibiotics. Pocket was closed in the usual fashion. The fascia was closed with 2-0 Prolene ,the subcutaneous tissue was closed with 3-0 Prolene and the skin was closed with 4-0 Prolene. PROGRAMMING: BRADYCARDIA PROGRAMMING: MODE: VVI RATE: 40 OUTPUT: Ventricle: 3.5 TACHYCARDIA PROGRAMMING: . The VF zone is programmed to a rate of 200 bpm. The therapies are programmed to 25 followed by 355 J. The VT zone is programmed to a rate of 176. The therapies are programmed to a burst pacing followed by cardioversion 5 at 35 J . The monitor zone is programmed to a rate of 150 bpm FINAL IMPRESSION: #1. Axillary venography #2. Successful implantation of single-chamber AICD #3. DFT testing COMPLICATIONS: None PLAN: Patient will be monitored on the telemetry unit. Prophylactic antibiotics to be continued. Chest x-ray in the morning
[2020-12-08] MEDS: LACTATED RINGERS 1,000 ML IV SCH (10:23)
[2020-12-08] MEDS: SODIUM CHLORIDE 0.9% 1,000 ML IV SCH ×4 (10:32→21:46)
[2020-12-08] MEDS ORDERED: ATORVASTATIN 80 MG TAB PO SCH (21:00)
[2020-12-08] MEDS: METOPROLOL TARTRATE 25 MG TAB PO SCH (21:41)
[2020-12-09] MEDS: LACTATED RINGERS 1,000 ML IV SCH (04:46)
[2020-12-09 08:10] VITALS: BP 146/92; PULSE 75; RESP 18; TEMP 98.2
--- NOTE | 2020-12-09 08:34 | XR ---
EXAMINATION TYPE: XR chest 2V DATE OF EXAM: 12/09/2020 COMPARISON: Chest x-ray 05/21/2020 HISTORY: Lead placement check TECHNIQUE: Frontal and lateral views of the chest are obtained. FINDINGS: There is been interval placement of a generator in left pectoral region, intracardiac defi brillator lead present in the right ventricle. No evident pneumothorax or pleural effusion. There are overlying artifacts. Cardiac mediastinal silhouette is stable. IMPRESSION: No evident complication status post defibrillator placement
[2020-12-09] MEDS ORDERED: NON FORMULARY DRUG (Omega-3 Fatty Acids/Fish Oil [Fish Oil 1,000 Mg Softgel] 1 EACH Capsul PO SCH (09:00)
[2020-12-09] MEDS ORDERED: MULTIVITAMINS, THERA 1 EACH TAB PO SCH (09:00)
[2020-12-09] MEDS ORDERED: FUROSEMIDE 20 MG TAB PO SCH (09:00)
[2020-12-09] MEDS ORDERED: lisinopriL 5 MG TAB PO SCH (09:00)
[2020-12-09] MEDS: METOPROLOL TARTRATE 25 MG TAB PO SCH (09:24)
--- NOTE | 2020-12-09 11:40 | P.DS ---
Providers Date of admission: 12/08/2020 Attending physician: Clair Harris Primary care physician: Stated None - Discharge Diagnosis(es) (1) Non-ischemic cardiomyopathy Current Visit: Yes Status: Acute (2) Cardiac defibrillator in place Current Visit: Yes Status: Acute (3) Chronic CHF Current Visit: Yes Status: Acute Hospital Course: This patient with history of nonischemic cardiomyopathy, mild coronary artery disease and chronic CHF was brought in for prophylactic AICD implantation. Patient had the procedure done yesterday and tolerated very well. Patient had a single coil, single chamber AICD implantation. Her chest x-ray looks normal without any complications. Site looks good without any evidence of hematoma. Patient is having mild tenderness. No Sigmund chest pain shortness of breath, dizziness or syncope. Lungs are clear. Heart is regular. No JVD. No peripheral edema. His device is being checked by [employer]. If all the numbers are stable, patient will be discharged home. Follow-up in the office with Dr. Zelaya in one week. Patient will resume all his medications except holding aspirin for 3 more days. Patient will be given prophylactic antibiotics. He is instructed not to lift his left arm above the shoulder level. No heavy lifting, pushing or pulling. To contact our office if he develops evidence significant bleeding, hematoma pain or fever. Plan - Discharge Summary Discharge Rx Participant: No New Discharge Prescriptions: New Cephalexin [Keflex] 500 mg PO Q8HR 1 Days #9 cap Continue Multivitamins, Thera [Multivitamin (formulary)] 1 tab PO DAILY [place]-3 Fatty Acids/Fish Oil [Fish Oil 1,000 mg Softgel] 1 cap PO DAILY Furosemide [Lasix] 20 mg PO DAILY #30 tab Atorvastatin [Lipitor] 80 mg PO HS #30 tab Metoprolol Tartrate [Lopressor] 25 mg PO BID #60 tab lisinopriL [Zestril] 5 mg PO DAILY #30 tab Discontinued Aspirin 324 mg PO DAILY Discharge Medication List Multivitamins, Thera [Multivitamin (formulary)] 1 tab PO DAILY 05/19/20 [History] [place]-3 Fatty Acids/Fish Oil [Fish Oil 1,000 mg Softgel] 1 cap PO DAILY 05/19/20 [History] Atorvastatin [Lipitor] 80 mg PO HS #30 tab 05/22/20 [Rx] Furosemide [Lasix] 20 mg PO DAILY #30 tab 02/13/21 [Rx] Metoprolol Tartrate [Lopressor] 25 mg PO BID #60 tab 05/22/20 [Rx] lisinopriL [Zestril] 5 mg PO DAILY #30 tab 05/22/20 [Rx] Cephalexin [Keflex] 500 mg PO Q8HR 1 Days #9 cap 12/09/20 [Rx] Follow up Appointment(s)/Referral(s): Foster Zelaya MD [STAFF PHYSICIAN] - 1 Week
== END 2020-12-09 13:41 | disposition home or self-care (01) ==
LOC: CATHEP 06:08 → 6NMEDSUR 09:20 → CATHEP 12-09 13:41
PROVIDERS: ATTEND Internal Medicine Cardiovascular Disease
DX: I50.9 Heart failure, unspecified (principal); I42.8 Other cardiomyopathies; I25.10 Atherosclerotic heart disease of native coronary artery without angina pectoris; Z79.82 Long term (current) use of aspirin; Z95.810 Presence of automatic (implantable) cardiac defibrillator
CPT/HCPCS: 33249; 80048; 85025; 71046; C1769 ×2; C1892; C1895; C1722; J0690; J2001; Q9966

== ENCOUNTER → 2021-09-29 | Outpatient (CLI) | payer MEDICARE ==
[2021-09-29 18:33] LABS: HCT 47.5 % (39.6-50.0); HGB 15.3 g/dL (13.0-17.0); MCHC 32.2 g/dL (32.0-37.0); MCV 96.2 fL (80.0-97.0); Mean Platelet Volume 12.6 fL (9.5-12.2); NRBC Per 100 WBC 0 /100 WBCS (0.0-0.0); Platelet Count 157 X 10*3/uL (140-440); RBC 4.94 X 10*6/uL (4.40-5.60); RDW 14.4 % (11.5-14.5); WBC 9.67 X 10*3/uL (4.50-10.00)
[2021-09-29 18:57] LABS: African American GFR (CKD) 89.5 (60.0-200.0); Anion Gap 12.8 mmol/L (10.00-18.00); BUN/Creat Ratio 12.21 Ratio (12.00-20.00); Blood Urea Nitrogen 11.9 mg/dL (9.0-27.0); Calcium 9.5 mg/dL (8.7-10.3); Carbon Dioxide 24.6 mmol/L (20.0-27.5); Non-African American GFR(CKD) 77.2 (60.0-200.0); Potassium 4.5 mmol/L (3.5-5.5)
== END | disposition home or self-care (01) ==
LOC: LABWHC1 10:47
PROVIDERS: ATTEND Internal Medicine Cardiovascular Disease
DX: I42.9 Cardiomyopathy, unspecified (principal); I48.91 Unspecified atrial fibrillation
CPT/HCPCS: 36415; 80048; 84443; 85027

== ENCOUNTER → 2021-11-25 | Outpatient (CLI) | payer MEDICARE ==
[2021-11-25 13:58] LABS: HCT 47.2 % (39.0-53.0); HGB 15.3 gm/dL (13.0-17.5); MCHC 32.5 g/dL (31.0-37.0); MCV 98.5 fL (80.0-100.0); Mean Platelet Volume 10.6; Platelet Count 151 k/uL (150-450); RBC 4.79 m/uL (4.30-5.90); RDW 13.1 % (11.5-15.5)
[2021-11-25 14:08] LABS: African American GFR (CKD) >90 (>60 ml/min/1.73 sqM); Anion Gap 11 mmol/L; Blood Urea Nitrogen 15 mg/dL (9-20); Calcium 9.3 mg/dL (8.4-10.2); Carbon Dioxide 25 mmol/L (22-30); Chloride 104 mmol/L (98-107); Glucose 97 mg/dL (74-99); Magnesium 1.8 mg/dL (1.6-2.3); Non-African American GFR(CKD) 88 (>60 ml/min/1.73 sqM); Potassium 4.1 mmol/L (3.5-5.1); Sodium 140 mmol/L (137-145)
== END | disposition home or self-care (01) ==
LOC: LABWHC1 13:30
PROVIDERS: ATTEND Internal Medicine Cardiovascular Disease
DX: I47.2 Ventricular tachycardia (principal)
CPT/HCPCS: 36415; 80048; 83735; 84443; 85027

== ENCOUNTER 2021-12-04 19:05 | Inpatient (IN) | payer MEDICARE ==
--- NOTE | 2021-12-04 19:15 | ED ---
General Adult HPI - General Chief complaint: Arrhythmia/Palpitations Stated complaint: Palpitations Time Seen by Provider: 12/04/21 19:11 Source: patient Mode of arrival: ambulatory Limitations: no limitations - History of Present Illness Initial comments: Patient presents to the ED with his for evaluation. Patient states that he was just getting out of the shower this evening when he became somewhat lightheaded. Patient states that he then felt his ICD shock him. Patient states that he had 3 subsequent shocks before his ICD stopped firing. Patient states that he currently has no symptoms. Patient denies having any pain, fever or chills, headache, focal numbness/weakness/neuro deficit, chest pain or pressure, dyspnea, palpitations, syncope, abdominal pain, nausea/vomiting/diaphoresis, dysuria or urinary symptoms, leg or calf swelling or pain, or any other symptoms or complaints. - Related Data Home Medications Medication Instructions Recorded Confirmed Multivitamins, Thera [Multivitamin 1 tab PO DAILY 05/19/20 12/08/20 (formulary)] [place]-3 Fatty Acids/Fish Oil [Fish 1 cap PO DAILY 05/19/20 12/08/20 Oil 1,000 mg Softgel] Previous Rx's Medication Instructions Recorded Atorvastatin [Lipitor] 80 mg PO HS #30 tab 05/22/20 Furosemide [Lasix] 20 mg PO DAILY #30 tab 05/22/20 Metoprolol Tartrate [Lopressor] 25 mg PO BID #60 tab 05/22/20 lisinopriL [Zestril] 5 mg PO DAILY #30 tab 05/22/20 Cephalexin [Keflex] 500 mg PO Q8HR 1 Days #9 cap 12/09/20 Allergies Allergy/AdvReac Type Severity Reaction Status Date / Time No Known Allergies Allergy Verified 12/04/21 19:10 Review of Systems ROS Statement: Those systems with pertinent positive or pertinent negative responses have been documented in the HPI. ROS Other: All systems not noted in ROS Statement are negative. Past Medical History Past Medical History: Cancer, CVA/TIA, Hyperlipidemia, Hypertension, Osteoarthritis (OA), Sleep Apnea/CPAP/BIPAP Additional Past Medical History / Comment(s): colon cancer 2009-had surgery & chemo, stroke in 2020-no residual effects, uses CPAP, ?polycythemia History of Any Multi-Drug Resistant Organisms: None Reported Past Surgical History: Bowel Resection, Heart Catheterization, Orthopedic Surgery, Pacemaker, Tonsillectomy Additional Past Surgical History / Comment(s): RT ALICIA Past Anesthesia/Blood Transfusion Reactions: No Reported Reaction Past Psychological History: No Psychological Hx Reported Smoking Status: Never smoker Past Alcohol Use History: None Reported Past Drug Use History: None Reported - Past Family History Father Family Medical History: Myocardial Infarction ([place]) Family Family Medical History: No Reported History General Exam Limitations: no limitations General appearance: alert, in no apparent distress Head exam: Present: atraumatic, normocephalic Eye exam: Present: normal appearance, EOMI ENT exam: Present: mucous membranes moist Neck exam: Present: other (Trachea is in midline) Respiratory exam: Present: normal lung sounds bilaterally. Absent: respiratory distress, wheezes, rales, rhonchi, stridor Cardiovascular Exam: Present: regular rate, irregular rhythm, normal heart sounds, other (Normal radial pulses bilaterally) GI/Abdominal exam: Present: soft. Absent: distended, tenderness, guarding Extremities exam: Absent: tenderness, pedal edema, calf tenderness Neurological exam: Present: alert, oriented X3. 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 Quintero who is currently in the ED. He accepts hospital admission. He agrees with cardiology consultation. He has no further recommendations at this time. 12/04/21 20:29 Case, H&P, test results and my discussion with Dr. Quintero as above were discussed with Dr. Parra (cardiology). He recommends giving the patient in amiodarone IV bolus and starting the patient on an amiodarone IV drip (he is aware that the patient is on oral amiodarone treatment currently). He also recommends increasing the patient's metoprolol dose to 50 mg PO BID. He agrees to see the patient in consultation. He has no further recommendations at this time. 12/04/21 20:39 Patient denies development of any new symptoms while in the ED, and he denies his ICD discharging while in the ED. Patient and are aware of the patient's test results and my discussions as above, and patient agrees with hospital admission at this time. EKG Findings - EKG Comments: EKG Findings:: Atrial fibrillation, ventricular rate of 61 bpm, normal QRS duration, normal QT interval, nonspecific ST and T-wave abnormality, normal axis Medical Decision Making - Medical Decision Making Patient's ICD was interrogated from the ED, and it reveals at the patient's ICD did in fact discharge 4 times due to VT/VF episodes. Patient's troponin is mildly elevated. Patient denies having any chest pain or dyspnea. Patient's electrolytes are within normal limits. Patient was started on IV amiodarone in the ED per cardiology's recommendations. Dr. Parra (cardiology) was consulted from the ED. Dr. Quintero has accepted hospital admission. - Lab Data Result diagrams: 12/04/21 19:30 12/04/21 19:30 Lab Results 12/04/21 12/04/21 12/04/21 Range/Units 19:30 19:30 19:30 WBC 11.6 H (3.8-10.6) k/uL RBC 4.97 (4.30-5.90) m/uL Hgb 16.4 (13.0-17.5) gm/dL Hct 48.2 (39.0-53.0) % MCV 97.1 (80.0-100.0) fL MCH 33.0 (25.0-35.0) pg MCHC 34.0 (31.0-37.0) g/dL RDW 13.2 (11.5-15.5) % Plt Count 157 (150-450) k/uL MPV 9.8 Neutrophils % 77 % Lymphocytes % 14 % Monocytes % 6 % Eosinophils % 1 % Basophils % 0 % Neutrophils # 8.9 H (1.3-7.7) k/uL Lymphocytes # 1.6 (1.0-4.8) k/uL Monocytes # 0.7 (0-1.0) k/uL Eosinophils # 0.1 (0-0.7) k/uL Basophils # 0.0 (0-0.2) k/uL PT 11.9 (9.0-12.0) sec INR 1.1 (<1.2) APTT 24.5 (22.0-30.0) sec Sodium 142 (137-145) mmol/L Potassium 3.9 (3.5-5.1) mmol/L Chloride 106 (98-107) mmol/L Carbon Dioxide 21 L (22-30) mmol/L Anion Gap 15 mmol/L BUN 17 (9-20) mg/dL Creatinine 1.19 (0.66-1.25) mg/dL Est GFR (CKD-EPI)AfAm 70 (>60 ml/min/1.73 sqM) Est GFR (CKD-EPI)NonAf 60 (>60 ml/min/1.73 sqM) Glucose 79 (74-99) mg/dL Calcium 9.9 (8.4-10.2) mg/dL Magnesium 1.8 (1.6-2.3) mg/dL Total Bilirubin 0.8 (0.2-1.3) mg/dL AST 38 (17-59) U/L ALT 30 (4-49) U/L Alkaline Phosphatase 68 (38-126) U/L Troponin I (0.000-0.034) ng/mL Total Protein 7.3 (6.3-8.2) g/dL Albumin 4.6 (3.5-5.0) g/dL 12/04/21 Range/Units 19:30 WBC (3.8-10.6) k/uL RBC (4.30-5.90) m/uL Hgb (13.0-17.5) gm/dL Hct (39.0-53.0) % MCV (80.0-100.0) fL MCH (25.0-35.0) pg MCHC (31.0-37.0) g/dL RDW (11.5-15.5) % Plt Count (150-450) k/uL MPV Neutrophils % % Lymphocytes % % Monocytes % % Eosinophils % % Basophils % % Neutrophils # (1.3-7.7) k/uL Lymphocytes # (1.0-4.8) k/uL Monocytes # (0-1.0) k/uL Eosinophils # (0-0.7) k/uL Basophils # (0-0.2) k/uL PT (9.0-12.0) sec INR (<1.2) APTT (22.0-30.0) sec Sodium (137-145) mmol/L Potassium (3.5-5.1) mmol/L Chloride (98-107) mmol/L Carbon Dioxide (22-30) mmol/L Anion Gap mmol/L BUN (9-20) mg/dL Creatinine (0.66-1.25) mg/dL Est GFR (CKD-EPI)AfAm (>60 ml/min/1.73 sqM) Est GFR (CKD-EPI)NonAf (>60 ml/min/1.73 sqM) Glucose (74-99) mg/dL Calcium (8.4-10.2) mg/dL Magnesium (1.6-2.3) mg/dL Total Bilirubin (0.2-1.3) mg/dL AST (17-59) U/L ALT (4-49) U/L Alkaline Phosphatase (38-126) U/L Troponin I 0.048 H* (0.000-0.034) ng/mL Total Protein (6.3-8.2) g/dL Albumin (3.5-5.0) g/dL - Radiology Data Chest x-ray: Critical Care Time Critical Care Time: Yes Total Critical Care Time: 30 Disposition Clinical Impression: Atrial fibrillation, ICD (implantable cardioverter-defibrillator) discharge, Elevated troponin Disposition: ADMITTED IP TO THIS [facility] Condition: Stable Is patient prescribed a controlled substance at d/c from ED?: No Referrals: Nonstaff,Physician [REFERRING] - 1-2 days Time of Disposition: 20:42
[2021-12-04 19:48] LABS: Basophils % (A) 0 %; Eosinophils # (A) 0.1 k/uL (0-0.7); Eosinophils % (A) 1 %; HCT 48.2 % (39.0-53.0); HGB 16.4 gm/dL (13.0-17.5); Lymphocytes # (A) 1.6 k/uL (1.0-4.8); Lymphocytes % (A) 14 %; MCV 97.1 fL (80.0-100.0); Mean Platelet Volume 9.8; Monocytes # (A) 0.7 k/uL (0-1.0); Monocytes % (A) 6 %; Neutrophils # (A) 8.9 k/uL (1.3-7.7); Neutrophils % (A) 77 %; Platelet Count 157 k/uL (150-450); RBC 4.97 m/uL (4.30-5.90); RDW 13.2 % (11.5-15.5); WBC 11.6 k/uL (3.8-10.6)
[2021-12-04 20:01] LABS: Albumin 4.6 g/dL (3.5-5.0); Calcium 9.9 mg/dL (8.4-10.2); Magnesium 1.8 mg/dL (1.6-2.3); Potassium 3.9 mmol/L (3.5-5.1); Total Bilirubin 0.8 mg/dL (0.2-1.3); Total Protein 7.3 g/dL (6.3-8.2)
[2021-12-04 20:05] LABS: INR 1.1 (<1.2); Partial Thromboplastin Time 24.5 sec (22.0-30.0); Prothrombin Time 11.9 sec (9.0-12.0)
--- NOTE | 2021-12-04 20:11 | XR ---
EXAMINATION TYPE: XR chest 2V DATE OF EXAM: 12/04/2021 COMPARISON: 12/09/2020 HISTORY: Dysrhythmia TECHNIQUE: 2 views FINDINGS: Heart is normal. Lungs are clear of infiltrate. No heart failure. There are no hilar masses . Bony thorax is intact. There is left axillary pacemaker. No pleural effusion. IMPRESSION: No active cardiopulmonary disease. Normal heart. No change.
[2021-12-04] MEDS ORDERED: ASPIRIN 81 MG PO STA (20:23)
[2021-12-04] MEDS ORDERED: DEXTROSE 5% IN WATER 100 ML with AMIODARONE 150 MG IV ONE (20:35)
[2021-12-04] MEDS ORDERED: AMIODARONE 360 MG in DEXTROSE 5% IN WATER 200 ML IV ONE ×2 (20:45)
[2021-12-04] MEDS: METOPROLOL TARTRATE 50 MG TAB PO SCH ×2 (20:59→21:01)
[2021-12-05] MEDS ORDERED: AMIODARONE 450 MG in DEXTROSE 5% IN WATER 250 ML IV SCH ×2 (02:45)
--- NOTE | 2021-12-05 02:46 | P.HPIM ---
History of Present Illness H&P Date: 12/04/21 The patient is a 71-year-old male with a PMH of A. fib on Eliquis, systolic CHF EF 20-25% status post AICD placement, hypertension, and upper lipidemia who presents to the emergency room with complaints of chest pain and lightheadedness. The patient reports that on 11/23, he experienced a shock from his AICD with subsequent lightheadedness. He did not think much of it and was contacted the following day by his optical mechanic apprentice who started him on amiodarone and advised him that if he was shocked again, that he immediately needs to seek medical attention. The patient reports being in his usual state until earlier today when he had 4 episodes of what felt like his AICD firing followed by lightheadedness and fatigue. The patient denied experiencing any prodrome with chest discomfort, nausea, shortness of breath, or diaphoresis. The patient's AICD was interrogated in the emergency room and was noted that it did in fact discharge 4 times due to VT/VF episodes. At time of interview, the patient reported feeling fatigued but denied any additional complaints. EKG in the emergency room revealed A. fib at 61 bpm with T-wave flattening in leads 3 and aVF. Chest x-ray was unremarkable. Laboratory evaluation was remarkable for troponin of 0.048. Review of systems: Pertinent positives and negatives as discussed in HPI, a complete review of systems was performed and all other systems are negative. Physical examination: General: non toxic, no distress, appears at stated age, overweight Derm: no unusual rashes/lesions, warm Head: atraumatic, normocephalic, symmetric Eyes: EOMI, no lid lag, anicteric sclera, pupils equal round reactive to light ENT: Nose and ears atraumatic Neck: No cervical lymphadenopathy, trachea midline, supple Mouth: no lip lesion, mucus membranes moist Cardiovascular: S1S2 reg, no murmur, positive dorsalis pedis pulse bilateral, no edema Lungs: CTA bilateral, no rhonchi, no rales, no accessory muscle use Abdominal: soft, nontender to palpation, no guarding Ext: muscle strength 5 out of 5 in all 4 extremities grossly, no gross muscle atrophy, no contractures, Neuro: CN II-XI grossly intact, no gross focal neuro deficits Psych: Alert, oriented, appropriate affect Assessment/plan Multiple AICD discharges for VF/VT episodes -Case discussed by ED physician with cardiology who recommended amiodarone infusion as well as increasing beta silverio to 50 mg by mouth twice a day -Cardiology consulted -Cardiac monitoring Troponin elevation, suspected secondary to AICD discharges -Patient denying chest discomfort at this time -Continue with above management -Trend for now Chronic conditions: A. fib, hypertension, lipidemia -Continue with home meds DVT prophylaxis -Cande The patient is admitted with an anticipated greater than 2 midnight stay for evaluation of AICD discharges CODE STATUS: Full Code Discussed with: Patient Anticipated discharge date: 2-[address]: Home Past Medical History Past Medical History: Cancer, CVA/TIA, Hyperlipidemia, Hypertension, Osteoarthritis (OA), Sleep Apnea/CPAP/BIPAP Additional Past Medical History / Comment(s): colon cancer 2009-had surgery & chemo, stroke in 2020-no residual effects, uses CPAP, ?polycythemia History of Any Multi-Drug Resistant Organisms: None Reported Past Surgical History: Bowel Resection, Heart Catheterization, Orthopedic Surgery, Pacemaker, Tonsillectomy Additional Past Surgical History / Comment(s): RT ALICIA Past Anesthesia/Blood Transfusion Reactions: No Reported Reaction Past Psychological History: No Psychological Hx Reported Smoking Status: Never smoker Past Alcohol Use History: None Reported Past Drug Use History: None Reported - Past Family History Father Family Medical History: Myocardial Infarction ([place]) Family Family Medical History: Chest Pain / Angina Medications and Allergies Home Medications Medication Instructions Recorded Confirmed Type Multivitamins, Thera [Multivitamin 1 tab PO DAILY@0805/19/20 12/04/21 History (formulary)] [place]-3 Fatty Acids/Fish Oil [Fish 2 cap PO DAILY@79905/19/20 12/04/21 History Oil 1,000 mg Softgel] Amiodarone [Cordarone] 200 mg PO BID@799,199912/04/21 12/04/21 History Apixaban [Eliquis] 5 mg PO BID@799,199912/04/21 12/04/21 History Atorvastatin [Lipitor] 80 mg PO HS@199912/04/21 12/04/21 History Furosemide [Lasix] 20 mg PO DAILY@79912/04/21 12/04/21 History Metoprolol Tartrate [Lopressor] 25 mg PO BID@0800,199912/04/21 12/04/21 History P500x Graminex Flower Pollen 2 cap PO DAILY@79912/04/21 12/04/21 History Extract lisinopriL [Zestril] 5 mg PO DAILY@79912/04/21 12/04/21 History Allergies Allergy/AdvReac Type Severity Reaction Status Date / Time No Known Allergies Allergy Verified 12/04/21 21:07 Physical Exam Vitals: Vital Signs Temp Pulse Pulse Resp BP Pulse Ox 12/04/21 21:16 98.4 F 56 L 18 117/77 95 12/04/21 19:39 66 12/04/21 19:06 98.3 F 65 18 139/88 96 Intake and Output 12/04/21 12/04/21 12/04/21 06:59 14:59 22:59 Other: Weight 86.183 kg Results CBC & Chem 7: 12/04/21 19:30 12/04/21 19:30 Labs: Abnormal Lab Results - Last 24 Hours (Table) 12/04/21 12/04/21 12/04/21 Range/Units 19:30 19:30 19:30 WBC 11.6 H (3.8-10.6) k/uL Neutrophils # 8.9 H (1.3-7.7) k/uL Carbon Dioxide 21 L (22-30) mmol/L Troponin I 0.048 H* (0.000-0.034) ng/mL
[2021-12-05 03:42] LABS: Basophils # (A) 0.1 k/uL (0-0.2); Basophils % (A) 1 %; Eosinophils # (A) 0.1 k/uL (0-0.7); Eosinophils % (A) 1 %; HCT 46.4 % (39.0-53.0); HGB 15.1 gm/dL (13.0-17.5); Lymphocytes # (A) 2.5 k/uL (1.0-4.8); Lymphocytes % (A) 26 %; MCH 31.7 pg (25.0-35.0); MCHC 32.6 g/dL (31.0-37.0); MCV 97.2 fL (80.0-100.0); Mean Platelet Volume 10.1; Monocytes # (A) 0.7 k/uL (0-1.0); Monocytes % (A) 8 %; Neutrophils # (A) 5.9 k/uL (1.3-7.7); Neutrophils % (A) 62 %; Platelet Count 141 k/uL (150-450); RBC 4.78 m/uL (4.30-5.90); WBC 9.6 k/uL (3.8-10.6)
[2021-12-05 04:07] LABS: Albumin 3.7 g/dL (3.5-5.0); Calcium 9.3 mg/dL (8.4-10.2); Potassium 3.9 mmol/L (3.5-5.1); Total Bilirubin 1.1 mg/dL (0.2-1.3); Total Protein 6.1 g/dL (6.3-8.2)
[2021-12-05] MEDS ORDERED: MEXILETINE 200 MG CAP PO SCH (08:45)
[2021-12-05] MEDS ORDERED: AMIODARONE 200 MG TAB PO SCH ×2 (09:00→21:00)
[2021-12-05] MEDS ORDERED: APIXABAN 5 MG TAB PO SCH (09:00)
[2021-12-05] MEDS: METOPROLOL TARTRATE 50 MG TAB PO SCH ×2 (10:18→23:27)
[2021-12-05] MEDS: lisinopriL 5 MG TAB PO SCH (10:18)
[2021-12-05] MEDS: FUROSEMIDE 20 MG TAB PO SCH (10:18)
--- NOTE | 2021-12-05 10:33 | P.CRDCN ---
History of Present Illness History of present illness: HISTORY OF PRESENTING ILLNESS This is a pleasant 71-year-old male past medical history significant for nonischemic cardiomyopathy status post AICD 12/2020, CVA 05/2020, hypertension, dyslipidemia, paroxysmal atrial fibrillation. Recent ventricular tachycardia treated with defbrillation as an outpatient, patient was free of cardiac symptoms and started on PO amiodarone. He follows in the office with Dr. Zelaya. We have been asked to see in consultation for Vtach and ICD discharge. Patient presents emergency department with complaints of lightheadedness. He states that he was getting a shower and acute onset of lightheadedness. He states he has discomfort in his chest and felt his ICD shock him. He presents to the ER for further evaluation. ICD interrogation was completed which revealed sustained ventricular tachycardia. Patient was started on IV amiodarone. No further episodes overnight. He is currently asymptomatic, denies any chest pain, shortness of breath, lightheadedness or dizziness. His vital signs are stable. DIAGNOSTICS * EKG reveals atrial fibrillation, heart rate 61, nonspecific STT wave abnormalities. * Telemetry tracings indicate atrial fibrillation with controlled ventricular rate, heart rate in the 50s/60s. No further V. tach noted. * Chest xray no acute cardiopulmonary process * Echocardiogram in the office 11/14/2021 revealed EF of 4045%, severe mitral regurgitation, small hypokinetic area of the inferior septal breath in place, mild LVH, mild tricuspid regurgitation * Cardiac catheterization 07/2020 revealed mild nonobstructive disease involving the LAD, moderate stenosis involving the ostial portion of the diagonal branch 4050% * Laboratory reviewed, TSH 11/25/21 was within normal limits, sodium 140, potassium 3.9, BUN 16, serum creatinine 1.06, magnesium 1.8, troponin 0.04, 0.35, 0.48, WBC 9.6, hemoglobin 15.1, platelets 141 * Current home cardiac medications include lisinopril 5 mg daily, metoprolol titrate 25 mg twice a day, Lasix 20 mg daily, atorvastatin 80 mg daily, Eliquis 5 mg twice a day, amiodarone 200 mg twice a day REVIEW OF SYSTEMS At the time of my exam: CONSTITUTIONAL: Denies fever or chills. CARDIOVASCULAR: Denies chest pain, shortness of breath, orthopnea, PND or palpitations. RESPIRATORY: Denies cough. GASTROINTESTINAL: Denies abdominal pain, diarrhea, constipation, nausea or vomiting. MUSCULOSKELETAL: Denies myalgias. NEUROLOGIC: Denies numbness, tingling, headacbe or weakness. ENDOCRINE: Denies fatigue, weight change, polydipsia or polyurina. GENITOURINARY: Denies burning, hematuria or urgency with micturation. HEMATOLOGIC: Denies history of anemia or bleeding. PHYSICAL EXAMINATION Blood pressure 118/76, heart rate 54, afebrile clock saturations 95% on room air CONSTITUTIONAL: No apparent distress. HEENT: Head is normocephalic. Pupils are equal, round. Sclerae anicteric. Mucous membranes of the mouth are moist. No JVD. No carotid bruit. CHEST EXAMINATION: Lungs are clear to auscultation. No chest wall tenderness is noted on palpation or with deep breathing. HEART EXAMINATION: Regular rate and rhythm. S1, S2 heard. Systolic murmur at apex, no gallops or rub. ABDOMEN: Soft, nontender. Positive bowel sounds. EXTREMITIES: 2+ peripheral pulses, no lower extremity edema and no calf tend erness. NEUROLOGIC EXAMINATION: Patient is awake, alert and oriented x3. ASSESSMENT Sustained ventricular tachycardia with ICD defibrillation Elevated troponin, likely secondary to above Nonischemic cardiomyopathy status post AICD 12/2020 CVA 05/2020 Hypertension Dyslipidemia Paroxysmal atrial fibrillation, on Eliquis PLAN Continue IV amiodarone, transition to amiodarone PO 200mg BID Start mexiletine 200mg Q8hr Metoprolol tartrate 50mg BID Continue Eliquis Continue home cardiac medications Continue cardiac telemetry Patient will likely benefit from EP Study Will continue monitor patient and make recommendations accordingly. Nurse practitioner note has been reviewed by physician. Signing provider agrees with the documented findings, assessment, and plan of care. Past Medical History Past Medical History: Cancer, CVA/TIA, Hyperlipidemia, Hypertension, Osteoarthritis (OA), Sleep Apnea/CPAP/BIPAP Additional Past Medical History / Comment(s): colon cancer 2009-had surgery & chemo, stroke in 2020-no residual effects, uses CPAP, ?polycythemia History of Any Multi-Drug Resistant Organisms: None Reported Past Surgical History: Bowel Resection, Heart Catheterization, Orthopedic Surgery, Pacemaker, Tonsillectomy Additional Past Surgical History / Comment(s): RT ALICIA Past Anesthesia/Blood Transfusion Reactions: No Reported Reaction Type of Cardiac Device: AICD Device Placement Date:: 12/08/2020 Past Psychological History: No Psychological Hx Reported Smoking Status: Never smoker Past Alcohol Use History: None Reported Past Drug Use History: None Reported - Past Family History Father Family Medical History: Myocardial Infarction ([place]) Family Family Medical History: Chest Pain / Angina Medications and Allergies Home Medications Medication Instructions Recorded Confirmed Type Multivitamins, Thera [Multivitamin 1 tab PO DAILY@79905/19/20 12/04/21 History (formulary)] [place]-3 Fatty Acids/Fish Oil [Fish 2 cap PO DAILY@79905/19/20 12/04/21 History Oil 1,000 mg Softgel] Amiodarone [Cordarone] 200 mg PO BID@08,199912/04/21 12/04/21 History Apixaban [Eliquis] 5 mg PO BID@08,199912/04/21 12/04/21 History Atorvastatin [Lipitor] 80 mg PO HS@199912/04/21 12/04/21 History Furosemide [Lasix] 20 mg PO DAILY@79912/04/21 12/04/21 History Metoprolol Tartrate [Lopressor] 25 mg PO BID@08,199912/04/21 12/04/21 History P500x Graminex Flower Pollen 2 cap PO DAILY@79912/04/21 12/04/21 History Extract lisinopriL [Zestril] 5 mg PO DAILY@79912/04/21 12/04/21 History Allergies Allergy/AdvReac Type Severity Reaction Status Date / Time No Known Allergies Allergy Verified 12/04/21 21:07 Physical Exam Vitals: Vital Signs Temp Pulse Pulse Pulse Resp BP BP 12/05/21 03:32 98.0 F 54 L 16 118/76 12/05/21 00:10 97.8 F 59 L 16 117/71 12/04/21 22:26 97.7 F 58 L 18 136/80 12/04/21 21:16 98.4 F 56 L 18 117/77 12/04/21 19:39 66 12/04/21 19:06 98.3 F 65 18 139/88 Pulse Ox 12/05/21 03:32 95 12/05/21 00:10 96 12/04/21 22:26 96 12/04/21 21:16 95 12/04/21 19:39 12/04/21 19:06 96 Intake and Output 12/04/21 12/05/21 12/05/21 22:59 06:59 14:59 Other: # Voids 1 Weight 86.183 kg 86 kg Results 12/05/21 03:18 12/05/21 03:18 Cardiac Enzymes 12/04/21 12/04/21 12/04/21 Range/Units 19:30 19:30 23:39 AST 38 (17-59) U/L Troponin I 0.048 H* 0.357 H* (0.000-0.034) ng/mL 12/05/21 12/05/21 Range/Units 03:18 03:18 AST 34 (17-59) U/L Troponin I 0.484 H* (0.000-0.034) ng/mL Coagulation 12/04/21 Range/Units 19:30 PT 11.9 (9.0-12.0) sec APTT 24.5 (22.0-30.0) sec CBC 12/04/21 12/05/21 Range/Units 19:30 03:18 WBC 11.6 H 9.6 (3.8-10.6) k/uL RBC 4.97 4.78 (4.30-5.90) m/uL Hgb 16.4 15.1 (13.0-17.5) gm/dL Hct 48.2 46.4 (39.0-53.0) % Plt Count 157 141 L (150-450) k/uL Comprehensive Metabolic Panel 12/04/21 12/05/21 Range/Units 19:30 03:18 Sodium 142 140 (137-145) mmol/L Potassium 3.9 3.9 (3.5-5.1) mmol/L Chloride 106 104 (98-107) mmol/L Carbon Dioxide 21 L 26 (22-30) mmol/L BUN 17 16 (9-20) mg/dL Creatinine 1.19 1.06 (0.66-1.25) mg/dL Glucose 79 86 (74-99) mg/dL Calcium 9.9 9.3 (8.4-10.2) mg/dL AST 38 34 (17-59) U/L ALT 30 26 (4-49) U/L Alkaline Phosphatase 68 57 (38-126) U/L Total Protein 7.3 6.1 L (6.3-8.2) g/dL Albumin 4.6 3.7 (3.5-5.0) g/dL Current Medications Generic Name Dose Route Start Last Admin Trade Name Freq PRN Reason Stop Dose Admin Apixaban 5 mg 12/05/21 09:00 Apixaban 5 Mg Tab PO BID OLAYINKA Protocol Atorvastatin Calcium 80 mg 12/05/21 21:00 Atorvastatin 80 Mg Tab PO HS OLAYINKA Furosemide 20 mg 12/05/21 09:00 Furosemide 20 Mg Tab PO DAILY OLAYINKA Amiodarone HCl 450 mg/ 250 mls @ 16.667 mls/hr 12/05/21 02:45 12/05/21 02:47 Dextrose/Water IV 12/05/21 20:44 0.5 mg/min .Q15H OLAYINKA 16.667 mls/hr Administration Protocol 0.5 MG/MIN Lisinopril 5 mg 12/05/21 09:00 Lisinopril 5 Mg Tab PO DAILY [facility] Metoprolol Tartrate 50 mg 12/04/21 21:00 12/04/21 21:01 Metoprolol Tartrate 50 Mg Tab PO Not Given BID [facility] Intake and Output 12/04/21 12/05/21 12/05/21 22:59 06:59 14:59 Other: # Voids 1 Weight 86.183 kg 86 kg 12/05/21 03:18 12/05/21 03:18
--- NOTE | 2021-12-05 14:17 | P.PN ---
Subjective Progress Note Date: 12/05/21 Principal diagnosis: Chest pain AICD fire Patient seen and examined today. He denies any new complaints overnight he's resting comfortable denies any new episodes of AICD discharge. Objective - Vital Signs Vital signs: Vital Signs Temp 97.6 F 12/05/21 08:00 Pulse 59 L 12/05/21 08:00 Resp 16 12/05/21 08:00 BP 131/81 12/05/21 08:00 Pulse Ox 96 12/05/21 08:00 FiO2 Intake & Output 12/04/21 12/05/21 12/05/21 18:59 06:59 18:59 Weight 86 kg Other: # Voids 1 1 - Exam Physical examination: General: non toxic, no distress, appears at stated age, overweight Derm: no unusual rashes/lesions, warm Head: atraumatic, normocephalic, symmetric Eyes: EOMI, no lid lag, anicteric sclera, pupils equal round reactive to light ENT: Nose and ears atraumatic Neck: No cervical lymphadenopathy, trachea midline, supple Mouth: no lip lesion, mucus membranes moist Cardiovascular: S1S2 reg, no murmur, positive dorsalis pedis pulse bilateral, no edema Lungs: CTA bilateral, no rhonchi, no rales, no accessory muscle use Abdominal: soft, nontender to palpation, no guarding Ext: muscle strength 5 out of 5 in all 4 extremities grossly, no gross muscle atrophy, no contractures, Neuro: CN II-XI grossly intact, no gross focal neuro deficits Psych: Alert, oriented, appropriate affect - Labs CBC & Chem 7: 12/05/21 03:18 12/05/21 03:18 Labs: Abnormal Lab Results - Last 24 Hours (Table) 12/04/21 12/04/21 12/04/21 Range/Units 19:30 19:30 19:30 WBC 11.6 H (3.8-10.6) k/uL Plt Count (150-450) k/uL Neutrophils # 8.9 H (1.3-7.7) k/uL Carbon Dioxide 21 L (22-30) mmol/L Troponin I 0.048 H* (0.000-0.034) ng/mL Total Protein (6.3-8.2) g/dL 12/04/21 12/05/21 12/05/21 Range/Units 23:39 03:18 03:18 WBC (3.8-10.6) k/uL Plt Count 141 L (150-450) k/uL Neutrophils # (1.3-7.7) k/uL Carbon Dioxide (22-30) mmol/L Troponin I 0.357 H* 0.484 H* (0.000-0.034) ng/mL Total Protein (6.3-8.2) g/dL 12/05/21 Range/Units 03:18 WBC (3.8-10.6) k/uL Plt Count (150-450) k/uL Neutrophils # (1.3-7.7) k/uL Carbon Dioxide (22-30) mmol/L Troponin I (0.000-0.034) ng/mL Total Protein 6.1 L (6.3-8.2) g/dL Assessment and Plan Assessment: Multiple AICD discharges for VF/VT episodes Sustained VT Troponin elevation -Cardiology team is currently following. -Continue with amiodarone which has now been switched to oral per cardiology team -Mexiletine, metoprolol, Eliquis Chronic conditions: A. fib, hypertension, lipidemia -Continue with home meds DVT prophylaxis -Eliquis The patient is admitted with an anticipated greater than 2 midnight stay for evaluation of AICD discharges CODE STATUS: Full Code Discussed with: Patient Anticipated discharge date: 24-[address]: Home
[2021-12-05] MEDS: SODIUM CHLORIDE 0.9% 1,000 ML IV SCH (17:29)
[2021-12-05] MEDS: HEPARIN SOD,PORK IN 0.45% NACL 25,000 UNIT in 0.45% NACL 1 250ML.BAG IV SCH (21:13)
[2021-12-05] MEDS: ATORVASTATIN 80 MG TAB PO SCH (21:13)
[2021-12-06 03:17] LABS: Basophils # (A) 0.1 k/uL (0-0.2); Basophils % (A) 1 %; Eosinophils # (A) 0.2 k/uL (0-0.7); Eosinophils % (A) 2 %; HCT 46.8 % (39.0-53.0); HGB 15.7 gm/dL (13.0-17.5); Lymphocytes # (A) 2.2 k/uL (1.0-4.8); Lymphocytes % (A) 23 %; MCH 32.9 pg (25.0-35.0); MCHC 33.7 g/dL (31.0-37.0); MCV 97.7 fL (80.0-100.0); Monocytes # (A) 0.7 k/uL (0-1.0); Monocytes % (A) 7 %; Neutrophils # (A) 6.2 k/uL (1.3-7.7); Neutrophils % (A) 65 %; Platelet Count 136 k/uL (150-450); RBC 4.79 m/uL (4.30-5.90); RDW 13.3 % (11.5-15.5); WBC 9.6 k/uL (3.8-10.6)
[2021-12-06 03:53] LABS: Calcium 8.7 mg/dL (8.4-10.2); Magnesium 1.9 mg/dL (1.6-2.3); Potassium 4.2 mmol/L (3.5-5.1)
[2021-12-06 06:17] LABS: Glucose,Whole Blood 93 mg/dL (70-110)
[2021-12-06] MEDS: FUROSEMIDE 20 MG TAB PO SCH (09:00)
[2021-12-06] MEDS: lisinopriL 5 MG TAB PO SCH (09:00)
[2021-12-06] MEDS: SODIUM CHLORIDE 0.9% 1,000 ML IV SCH (09:00)
[2021-12-06] MEDS: METOPROLOL TARTRATE 50 MG TAB PO SCH (09:00)
--- NOTE | 2021-12-06 11:35 | P.PN ---
Subjective Progress Note Date: 12/06/21 Principal diagnosis: Chest pain AICD fire Patient seen and examined today. He is scheduled for ablation therapy today. He has no new complaints no nausea vomiting fever or chills no shortness of breath or chest pain Objective - Vital Signs Vital signs: Vital Signs Temp 96.7 F L 12/06/21 08:00 Pulse 63 12/06/21 08:00 Resp 18 12/06/21 08:00 BP 149/70 12/06/21 08:00 Pulse Ox 96 12/06/21 08:00 FiO2 Intake & Output 12/05/21 12/06/21 12/06/21 18:59 06:59 18:59 Intake Total 180 0 Balance 180 0 Weight 85.2 kg Intake: Oral 180 0 Other: # Voids 1 2 - Exam Physical examination: General: non toxic, no distress, appears at stated age, overweight Derm: no unusual rashes/lesions, warm Head: atraumatic, normocephalic, symmetric Eyes: EOMI, no lid lag, anicteric sclera, pupils equal round reactive to light ENT: Nose and ears atraumatic Neck: No cervical lymphadenopathy, trachea midline, supple Mouth: no lip lesion, mucus membranes moist Cardiovascular: S1S2 reg, no murmur, positive dorsalis pedis pulse bilateral, no edema Lungs: CTA bilateral, no rhonchi, no rales, no accessory muscle use Abdominal: soft, nontender to palpation, no guarding Ext: muscle strength 5 out of 5 in all 4 extremities grossly, no gross muscle atrophy, no contractures, Neuro: CN II-XI grossly intact, no gross focal neuro deficits Psych: Alert, oriented, appropriate affect - Labs CBC & Chem 7: 12/06/21 02:58 12/06/21 02:58 Labs: Abnormal Lab Results - Last 24 Hours (Table) 12/06/21 12/06/21 Range/Units 02:58 02:58 Plt Count 136 L (150-450) k/uL APTT 52.1 H (22.0-30.0) sec Assessment and Plan Assessment: Multiple AICD discharges for VF/VT episodes Sustained VT Troponin elevation -Cardiology team is currently following. -Thompson is scheduled for cardiac ablation Chronic conditions: A. fib, hypertension, lipidemia -Continue with home meds DVT prophylaxis -Cande The patient is admitted with an anticipated greater than 2 midnight stay for evaluation of AICD discharges CODE STATUS: Full Code Discussed with: Patient Disposition: Anticipate discharge when cleared by cardiology team
[2021-12-06] MEDS ORDERED: ceFAZolin 10 GM VIAL IVPB ONE (14:50)
[2021-12-06] MEDS ORDERED: HEPARIN SODIUM,PORCINE 10,000 UNIT/ML 1 ML VIAL ONE (15:19)
[2021-12-06] MEDS ORDERED: PROPOFOL 10 MG/ML 20 ML VIAL IV ONE (15:19)
[2021-12-06] MEDS ORDERED: MIDAZOLAM 2 MG/2 ML VIAL ONE (15:19)
[2021-12-06] MEDS ORDERED: fentaNYL (PF) 50 MCG/ML 2 ML AMP ONE (15:19)
[2021-12-06] MEDS ORDERED: ePHEDrine 50 MG/ML 1 ML VIAL ONE (15:19)
[2021-12-06] MEDS ORDERED: ISOPROTERENOL 250 MCG/1.25 ML SYR IV ONE (15:19)
[2021-12-06] MEDS ORDERED: LIDOCAINE URO-JET JELLY 2% 5 ML KIT ONE (15:22)
[2021-12-06] MEDS ORDERED: LIDOCAINE 1% INJ 10MG/ML (20 ML MDV) SQ ONE ×2 (16:12→16:54)
[2021-12-06] MEDS ORDERED: HEPARIN SODIUM (1,000 UNIT/ML) 1,000 UNIT in SODIUM CHLORIDE 0.9% 1,000 ML IRRIGATION ONE ×4 (19:06)
[2021-12-06] MEDS ORDERED: SODIUM CHLORIDE 0.9% 1,000 ML IV ONE (19:22)
[2021-12-06] MEDS ORDERED: SOTALOL 80 MG TAB PO STA (19:23)
--- NOTE | 2021-12-06 19:27 | P.PN ---
Progress Note - Text EP study performed 2 runs of nonsustained ventricular tachycardia, identical VT, likely clinical Similar to PVC on one of his twelve-lead EKGs in the past Endocardial mapping performed Middle cardiac vein mapping This is epicardial inferior wall VT Intracardiac echo also showed evidence of pericarditis Likely adhesions in the pericardium Plan Medical management for ventricular tachycardia with suppressive antiarrhythmic drug therapy stop fish oil Stop metoprolol Start carvedilol 3.125 g twice daily Lisinopril 2.5 mg by mouth daily Spironolactone 25 mg daily Stop amiodarone Start Sotalol 80 mg twice daily Start mexiletine 150 mg 3 times a day After 2-3 weeks, increase the dose of sotalol 120 mg twice daily After 4 weeks consider stopping mexiletine if possible, as long as he has no more episodes of VT ELIQUIS 5 g twice daily Defibrillation level testing in 2 months in the EP lab Consider ENTRESTO in the future if he can tolerate Continue atorvastatin Discharge planning for , no sooner
--- NOTE | 2021-12-06 19:36 | P.EPPROC ---
- EP Procedure Note Electrophysiology Procedure Note: Diagnosis Nonischemic cardio myopathy Recurrent ventricular tachycardia requiring therapies, fast VT Multiple episodes of therapies Has been on IV and oral amiodarone for the last 4-5 days Brought to the EP lab for diagnostic EP study and possible ablation Details Issues brought to the EP lab in a fasting state. Written informed consent was obtained prior to the procedure IV antibiotics administered Single-chamber ICD interrogated and reprogrammed. Lead impedances interrogated at baseline. Patient is a single coil [employer] ICD. Therapies turned off prior to the procedure Venous sheaths placed via the left femoral vein His bundle catheter and RV catheters placed. Later CS catheter placed Diagnostic EP study performed Patient in atrial fibrillation. QRS 129 ms, QT 465 ms HV interval 37 ms Ventricle axis stimulation was performed Burst stimulation was performed Isuprel was used 2 episodes of nonsustained VT of identical morphology induced Cycle length about 350 ms Right bundle branch block pattern with a QS pattern in inferior leads and in V6 However further stimulation could not reproducibly induce the tachycardia for activation mapping Intracardiac echo performed no left atrial appendage thrombus Thickened pericardium especially along the inferior wall of the LV 3-D mapping performed. LV mapping as well as posterior papillary muscle mapping Left and right transseptal catheterization performed. Heparin started RA pressure 8/4/6. LA 14/2/8 mmHg Long sheaths placed in the left atrium Irrigated tip ablation cath placed in the left atrium Sheath and catheter then manipulated across the mitral valve for LV inferior wall mapping Pace mapping performed Very poor pace perhaps obtained along the inferior wall, underneath The muscle as well as over the papillary muscle consistent with the twelve-lead EKG Likely epicardial focus along the inferior wall, apically Ablation not performed Catheters removed from the LAD and placed in the coronary sinus and then into the middle cardiac vein Better pace perhaps obtained from the middle cardiac vein but still suboptimal All catheters removed. No evidence for pericardial effusion on intracardiac echo Veins sealed with Vascade Device every interrogated VT therapies turned on Monitor zone 150 beats a minute VT 171 beats a minute VF 214 beats a minute Antitachycardia pacing in the VT zone Appropriate cardioversion defibrillations Plan Medical treatment for epicardial inferior apical VT Patient has pericarditis that is evident especially along the inferior wall Likely pericardial adhesions will be encountered during epicardial mapping DFT testing on antiarrhythmic drug therapy in the future With preferably use sotalol and initially add mexiletine Hold off on amiodarone Use carvedilol instead of metoprolol to avoid bradycardia
[2021-12-06] MEDS: HEPARIN SOD,PORK IN 0.45% NACL 25,000 UNIT in 0.45% NACL 1 250ML.BAG IV SCH (20:04)
[2021-12-06] MEDS: ATORVASTATIN 80 MG TAB PO SCH (20:58)
[2021-12-06] MEDS: MEXILETINE 150 MG CAP PO SCH (20:58)
[2021-12-06] MEDS: APIXABAN 5 MG TAB PO SCH (20:58)
[2021-12-06] MEDS: SOTALOL 80 MG TAB PO SCH (21:02)
[2021-12-07] MEDS: MEXILETINE 150 MG CAP PO SCH ×4 (05:25→21:05)
[2021-12-07 06:11] LABS: Glucose,Whole Blood 75 mg/dL (70-110)
[2021-12-07] MEDS: carvediloL 3.125 MG TAB PO SCH ×2 (06:16→16:23)
[2021-12-07] MEDS ORDERED: SOTALOL 80 MG TAB PO STA (09:06)
[2021-12-07] MEDS: APIXABAN 5 MG TAB PO SCH ×2 (09:14→20:31)
[2021-12-07] MEDS: SOTALOL 80 MG TAB PO SCH (09:17)
--- NOTE | 2021-12-07 12:26 | P.PN ---
Subjective HISTORY OF PRESENTING ILLNESS This is a pleasant 71-year-old male past medical history significant for nonischemic cardiomyopathy status post AICD 12/2020, CVA 05/2020, hypertension, dyslipidemia, paroxysmal atrial fibrillation. Recent ventricular tachycardia treated with defbrillation as an outpatient, patient was free of cardiac symptoms and started on PO amiodarone. He follows in the office with Dr. Zelaya. We have been asked to see in consultation for Vtach and ICD discharge. Patient presents emergency department with complaints of lightheadedness. He states that he was getting a shower and acute onset of lightheadedness. He states he has discomfort in his chest and felt his ICD shock him. He presents to the ER for further evaluation. ICD interrogation was completed which revealed sustained ventricular tachycardia. Patient was started on IV amiodarone. No further episodes were noted. * Echocardiogram in the office 11/14/2021 revealed EF of 4045%, severe mitral regurgitation, small hypokinetic area of the inferior septal breath in place, mild LVH, mild tricuspid regurgitation * Cardiac catheterization 07/2020 revealed mild nonobstructive disease involving the LAD, moderate stenosis involving the ostial portion of the diagonal branch 4050% 12/07 Patient underwent EP study with Dr. Wolf on 12/06. He is lying in bed comfortably, no distress. Denies any chest pain, shortness of breath, lightheadedness or dizziness. His left groin cath site had some mild oozing overnight. Overall he is doing well. Continues to be in age fibrillation with controlled ventricular rates, no further episodes of ventricular tachycardia. His blood pressures are stable. PHYSICAL EXAMINATION Vital signs reviewed CONSTITUTIONAL: No apparent distress. HEENT: Head is normocephalic. Neck supple No JVD. No carotid bruit. CHEST EXAMINATION: Lungs are clear to auscultation. No chest wall tenderness is noted on palpation or with deep breathing. HEART EXAMINATION: Irregular rate and rhythm. S1, S2 heard. Systolic murmur at apex, no gallops or rub. ABDOMEN: Soft, nontender. Positive bowel sounds. EXTREMITIES: 2+ peripheral pulses, no lower extremity edema and no calf tenderness. SKIN: Bilateral groin cath sites are clean, dressing intact no hematoma or significant bleeding NEUROLOGIC EXAMINATION: Patient is awake, alert and oriented x3. ASSESSMENT Epicardial inferior wall ventricular tachycardia Status post EP study on 12/06 Intracardiac echo also showed evidence of pericarditis Sustained ventricular tachycardia with ICD defibrillation Elevated troponin, likely secondary to above Nonischemic cardiomyopathy status post AICD 12/2020 CVA 05/2020 Hypertension Dyslipidemia Paroxysmal atrial fibrillation, on Eliquis PLAN Medical management for ventricular tachycardia with suppressive antiarrhythmic drug therapy Increase Sotalol tonight to 120mg BID Continue mexiletine 150 mg 3 times a day Continue carvedilol 3.125 mg twice daily Continue Lisinopril 2.5 mg by mouth daily Continue Spironolactone 25 mg daily Continue atorvastatin Eliquis 5mg BID Stop amiodarone Stop fish oil Stop metoprolol After 4 weeks consider stopping mexiletine if possible, as long as he has no more episodes of VT Consider ENTRESTO in the future if he can tolerate Continue to monitor for additional 24 hours Daily EKGs Further recommendations based on clinical course Nurse practitioner note has been reviewed by physician. Signing provider agrees with the documented findings, assessment, and plan of care. Objective - Vital Signs Vital signs: Vital Signs Temp 97.7 F 12/06/21 19:40 Pulse 61 12/07/21 03:08 Resp 18 12/07/21 03:08 BP 132/81 12/07/21 03:08 Pulse Ox 95 12/07/21 03:08 FiO2 Intake & Output 12/06/21 12/07/21 12/07/21 18:59 06:59 18:59 Intake Total 0 614 118 Output Total 475 Balance 0 139 118 Intake: IV 614 Oral 0 118 Output: Urine 475 - Labs CBC & Chem 7: 12/06/21 02:58 12/06/21 02:58
[2021-12-07] MEDS: SPIRONOLACTONE 25 MG TAB PO SCH (12:34)
--- NOTE | 2021-12-07 14:23 | P.PN ---
Subjective Progress Note Date: 12/07/21 Principal diagnosis: Chest pain AICD fire Patient seen and examined today. No acute issues. No nausea or vomiting. No fever or chills. Patient is status post ablation treatment that was performed yesterday. Objective - Vital Signs Vital signs: Vital Signs Temp 96.9 F L 12/07/21 08:00 Pulse 83 12/07/21 12:00 Resp 18 12/07/21 12:00 BP 99/63 12/07/21 12:00 Pulse Ox 100 12/07/21 12:00 FiO2 Intake & Output 12/06/21 12/07/21 12/07/21 18:59 06:59 18:59 Intake Total 0 614 118 Output Total 475 Balance 0 139 118 Intake: IV 614 Oral 0 118 Output: Urine 475 - Exam Physical examination: General: non toxic, no distress, appears at stated age, overweight Derm: no unusual rashes/lesions, warm Head: atraumatic, normocephalic, symmetric Eyes: EOMI, no lid lag, anicteric sclera, pupils equal round reactive to light ENT: Nose and ears atraumatic Neck: No cervical lymphadenopathy, trachea midline, supple Mouth: no lip lesion, mucus membranes moist Cardiovascular: S1S2 reg, no murmur, positive dorsalis pedis pulse bilateral, no edema Lungs: CTA bilateral, no rhonchi, no rales, no accessory muscle use Abdominal: soft, nontender to palpation, no guarding Ext: muscle strength 5 out of 5 in all 4 extremities grossly, no gross muscle atrophy, no contractures, Neuro: CN II-XI grossly intact, no gross focal neuro deficits Psych: Alert, oriented, appropriate affect - Labs CBC & Chem 7: 12/06/21 02:58 12/06/21 02:58 Assessment and Plan Assessment: Multiple AICD discharges for VF/VT episodes Sustained VT Troponin elevation Acute pericarditis -Cardiology team is currently following. -Status post EP study that was performed on 12/06/2021 -Currently on antiarrhythmic drug treatment of sotalol, mexiletine, carvedilol, Chronic conditions: A. fib, hypertension, hyperlipidemia -Continue with atorvastatin, lisinopril, carvedilol, DVT prophylaxis -Eliquis Disposition: Plan is to monitor for additional 24 hours. An anticipated discharge tomorrow. We will check a.m. labs CODE STATUS: Full Code
[2021-12-07] MEDS: SOTALOL 120 MG TAB PO SCH (20:31)
[2021-12-07] MEDS: ATORVASTATIN 80 MG TAB PO SCH (20:31)
[2021-12-08] MEDS: MEXILETINE 150 MG CAP PO SCH ×2 (04:28→12:06)
[2021-12-08 04:54] LABS: Basophils % (A) 0 %; Eosinophils # (A) 0.1 k/uL (0-0.7); Eosinophils % (A) 1 %; HCT 48.4 % (39.0-53.0); HGB 15.7 gm/dL (13.0-17.5); Lymphocytes % (A) 21 %; MCH 32.1 pg (25.0-35.0); MCHC 32.5 g/dL (31.0-37.0); MCV 98.6 fL (80.0-100.0); Mean Platelet Volume 10.3; Monocytes # (A) 0.8 k/uL (0-1.0); Monocytes % (A) 8 %; Neutrophils # (A) 6.2 k/uL (1.3-7.7); Neutrophils % (A) 66 %; Platelet Count 144 k/uL (150-450); RBC 4.91 m/uL (4.30-5.90); RDW 13.3 % (11.5-15.5); WBC 9.4 k/uL (3.8-10.6)
[2021-12-08 05:08] LABS: Potassium 4.5 mmol/L (3.5-5.1)
[2021-12-08] MEDS: carvediloL 3.125 MG TAB PO SCH (06:47)
[2021-12-08] MEDS: SOTALOL 120 MG TAB PO SCH (09:46)
[2021-12-08] MEDS: APIXABAN 5 MG TAB PO SCH (09:46)
[2021-12-08 11:19] VITALS: RESP 16
[2021-12-08 11:55] VITALS: BP 113/78; PULSE 59; TEMP 97.7
[2021-12-08] MEDS: SPIRONOLACTONE 25 MG TAB PO SCH (12:02)
--- NOTE | 2021-12-08 12:25 | P.DS ---
Providers Date of admission: 12/04/21 20:37 Attending physician: Patricia Quintero MD Consults: 12/04/21 20:37 Consult Physician Urgent Consulting Provider: Christopher Parra Consult Reason/Comments: ICD discharge, elevated troponin, atrial fibrillation Do you want consulting provider notified?: Already Contacted Primary care physician: Stated None Hospital Course: 71-year-old male past medical history significant for nonischemic cardiomyopathy status post AICD 12/2020, CVA 05/2020, hypertension, dyslipidemia, paroxysmal atrial fibrillation. Recent ventricular tachycardia treated with defbrillation as an outpatient, patient was free of cardiac symptoms and started on PO amiodarone. He follows in the office with Dr. Zelaya. We have been asked to see in consultation for Vtach and ICD discharge. Patient presents emergency department with complaints of lightheadedness. He presented with history of ICD defibrillation shock. Patient was evaluated by cardiology team. He underwent EP study on 12/06 he was diagnosed with epicardial inferior wall ventricular tachycardia. His cardiac echo showed evidence of pericarditis. This medication were change to sotalol 120 mg twice a day, mexiletine 150 mg 3 times a day, carvedilol 3.125 mg twice a day, lisinopril 2.5 daily, Aldactone 25 mg daily. He is to stop amiodarone, fish oil, metoprolol Patient was cleared for discharge home and to follow-up with his primary care physician and limnologist Plan - Discharge Summary Discharge Rx Participant: No New Discharge Prescriptions: New Spironolactone [Aldactone] 25 mg PO DAILY@1200 #90 tab Sotalol [Betapace] 120 mg PO BID #60 tab carvediloL [Coreg] 3.125 mg PO BID-W/MEALS #60 tab Mexiletine [Mexitil] 150 mg PO Q8H #90 cap Magnesium Oxide [Mag-Ox] 400 mg PO DAILY #90 tab lisinopriL [Zestril] 2.5 mg PO DAILY@1200 #90 tab Continue Multivitamins, Thera [Multivitamin (formulary)] 1 tab PO DAILY@0800 Apixaban [Eliquis] 5 mg PO BID@0800,2000 P500x Graminex Flower Pollen Extract 2 cap PO DAILY@0800 Atorvastatin [Lipitor] 80 mg PO HS@2000 Discontinued [place]-3 Fatty Acids/Fish Oil [Fish Oil 1,000 mg Softgel] 2 cap PO DAILY@0800 Metoprolol Tartrate [Lopressor] 25 mg PO BID@ Amiodarone [Cordarone] 200 mg PO BID@799,1999 lisinopriL [Zestril] 5 mg PO DAILY@0800 Furosemide [Lasix] 20 mg PO DAILY@0800 Discharge Medication List Multivitamins, Thera [Multivitamin (formulary)] 1 tab PO DAILY@0800 05/19/20 [History] Apixaban [Eliquis] 5 mg PO BID@08,199912/04/21 [History] Atorvastatin [Lipitor] 80 mg PO HS@199912/04/21 [History] P500x Graminex Flower Pollen Extract 2 cap PO DAILY@0800 12/04/21 [History] Magnesium Oxide [Mag-Ox] 400 mg PO DAILY #90 tab 12/08/21 [Rx] Mexiletine [Mexitil] 150 mg PO Q8H #90 cap 12/08/21 [Rx] Sotalol [Betapace] 120 mg PO BID #60 tab 12/08/21 [Rx] Spironolactone [Aldactone] 25 mg PO DAILY@1200 #90 tab 12/08/21 [Rx] carvediloL [Coreg] 3.125 mg PO BID-W/MEALS #60 tab 12/08/21 [Rx] lisinopriL [Zestril] 2.5 mg PO DAILY@1200 #90 tab 12/08/21 [Rx] Follow up Appointment(s)/Referral(s): Nonstaff,Physician [REFERRING] - 1-2 days Foster Zelaya MD [STAFF PHYSICIAN] - 2 Weeks Discharge Disposition: HOME SELF-CARE
--- NOTE | 2021-12-08 13:54 | P.PN ---
Subjective HISTORY OF PRESENTING ILLNESS This is a pleasant 71-year-old male past medical history significant for nonischemic cardiomyopathy status post AICD 12/2020, CVA 05/2020, hypertension, dyslipidemia, paroxysmal atrial fibrillation. Recent ventricular tachycardia treated with defbrillation as an outpatient, patient was free of cardiac symptoms and started on PO amiodarone. He follows in the office with Dr. Zelaya. We have been asked to see in consultation for Vtach and ICD discharge. Patient presents emergency department with complaints of lightheadedness. He states that he was getting a shower and acute onset of lightheadedness. He states he has discomfort in his chest and felt his ICD shock him. He presents to the ER for further evaluation. ICD interrogation was completed which revealed sustained ventricular tachycardia. Patient was started on IV amiodarone. No further episodes were noted. * Echocardiogram in the office 11/14/2021 revealed EF of 4045%, severe mitral regurgitation, small hypokinetic area of the inferior septal breath in place, mild LVH, mild tricuspid regurgitation * Cardiac catheterization 07/2020 revealed mild nonobstructive disease involving the LAD, moderate stenosis involving the ostial portion of the diagonal branch 4050% 12/08 Patient underwent EP study with Dr. Wolf on 12/06. He is lying in bed c omfortably, no distress. Denies any chest pain, shortness of breath, lightheadedness or dizziness. His left groin cath site is clean dry intact, non-tender 2+ pulseds. Overall he is doing well. Continues to be in atrial fibrillation with controlled ventricular rates, no further episodes of ventri cular tachycardia, occasional PVCs noted. His blood pressures are stable. EKGs reviewed this morning with QT 440ms. PHYSICAL EXAMINATION Vital signs reviewed CONSTITUTIONAL: No apparent distress. HEENT: Head is normocephalic. Neck supple No JVD. No carotid bruit. CHEST EXAMINATION: Lungs are clear to auscultation. No chest wall tenderness is noted on palpation or with deep breathing. HEART EXAMINATION: Irregular rate and rhythm. S1, S2 heard. Systolic murmur at apex, no gallops or rub. ABDOMEN: Soft, nontender. Positive bowel sounds. EXTREMITIES: 2+ peripheral pulses, no lower extremity edema and no calf tenderness. SKIN: Bilateral groin cath sites are clean, dressing intact no hematoma or significant bleeding NEUROLOGIC EXAMINATION: Patient is awake, alert and oriented x3. ASSESSMENT Epicardial inferior wall ventricular tachycardia Status post EP study on 12/06 Intracardiac echo also showed evidence of pericarditis Sustained ventricular tachycardia with ICD defibrillation Elevated troponin, likely secondary to above Nonischemic cardiomyopathy status post AICD 12/2020 CVA 05/2020 Hypertension Dyslipidemia Paroxysmal atrial fibrillation, on Eliquis PLAN Medical management for ventricular tachycardia with suppressive antiarrhythmic drug therapy Continue Sotalol tonight to 120mg BID Continue mexiletine 150 mg 3 times a day Continue carvedilol 3.125 mg twice daily Continue Lisinopril 2.5 mg by mouth daily Continue Spironolactone 25 mg daily Continue atorvastatin Eliquis 5mg BID Stop amiodarone Stop fish oil Stop metoprolol After 4 weeks consider stopping mexiletine if possible, as long as he has no more episodes of VT Consider ENTRESTO in the future if he can tolerate From cardiology perspective, patient stable to be discharged home. Follow up outpatient with Dr. Zelaya and Dr. Wolf Nurse practitioner note has been reviewed by physician. Signing provider agrees with the documented findings, assessment, and plan of care. Objective - Vital Signs Vital signs: Vital Signs Temp 97.7 F 12/07/21 20:00 Pulse 60 12/08/21 04:00 Resp 18 12/08/21 04:00 BP 123/83 12/08/21 04:00 Pulse Ox 98 12/08/21 04:00 FiO2 Intake & Output 12/07/21 12/08/21 12/08/21 18:59 06:59 18:59 Intake Total 354 120 Balance 354 120 Intake: Oral 354 120 Other: # Voids 1 - Labs CBC & Chem 7: 12/08/21 04:19 12/08/21 04:19 Labs: Abnormal Lab Results - Last 24 Hours (Table) 12/08/21 12/08/21 Range/Units 04:19 04:19 Plt Count 144 L (150-450) k/uL BUN 21 H (9-20) mg/dL
[2021-12-09] MEDS ORDERED: MAGNESIUM OXIDE 400 MG TAB PO SCH (09:00)
== END 2021-12-08 13:59 | disposition home or self-care (01) | DRG 274 ==
LOC: EC 19:05 → 3SCARD 20:37
PROVIDERS: ADMIT Internal Medicine; ATTEND Internal Medicine
PROC: 4A023FZ Measurement of Cardiac Rhythm, Percutaneous Approach (ICD-10-PCS; principal; 2021-12-06 15:00)
PROC: 4A0234Z Measurement of Cardiac Electrical Activity, Percutaneous Approach (ICD-10-PCS; 2021-12-06 15:00)
PROC: 02K83ZZ Map Conduction Mechanism, Percutaneous Approach (ICD-10-PCS; 2021-12-06 15:00)
DX: I47.2 Ventricular tachycardia (principal); I30.9 Acute pericarditis, unspecified; I42.8 Other cardiomyopathies; I50.22 Chronic systolic (congestive) heart failure; I48.0 Paroxysmal atrial fibrillation; I11.0 Hypertensive heart disease with heart failure; I08.1 Rheumatic disorders of both mitral and tricuspid valves; I25.10 Atherosclerotic heart disease of native coronary artery without angina pectoris; E78.5 Hyperlipidemia, unspecified; R77.8 Other specified abnormalities of plasma proteins; I49.3 Ventricular premature depolarization; M19.90 Unspecified osteoarthritis, unspecified site; G47.30 Sleep apnea, unspecified; E66.3 Overweight; Z68.29 Body mass index [BMI] 29.0-29.9, adult; Z79.01 Long term (current) use of anticoagulants; Z79.899 Other long term (current) drug therapy; Z95.810 Presence of automatic (implantable) cardiac defibrillator; Z86.73 Personal history of transient ischemic attack (TIA), and cerebral infarction without residual deficits; Z96.641 Presence of right artificial hip joint; Z82.49 Family history of ischemic heart disease and other diseases of the circulatory system
CPT/HCPCS: 36415; 71046; 80048; 80053; 83735; 84484; 85025; 85610; 85730; 86850; 86900; 86901; 93005; 93620; 93623; 93662; 96365; 99291

== ENCOUNTER 2022-01-10 07:14 | Day surgery (SDC) | payer MEDICARE ==
[~2022-01-10 07:14] MED LIST changes: -ALPRAZolam 0.25 MG TAB PO PRN; -ALPRAZolam 0.5 MG TAB PO PRN; -ASPIRIN 325 MG TAB PO STA; -ATORVASTATIN 80 MG TAB PO STA; -HEPARIN SODIUM,PORCINE 10,000 UNIT in SODIUM CHLORIDE 0.9% 1,000 ML IRRIGATION PRN; -HEPARIN SODIUM,PORCINE 2,500 UNIT in SODIUM CHLORIDE 0.9% 250 ML IRRIGATION PRN; -NITROGLYCERIN SL TABS 0.4 MG TAB SUBLINGUAL PRN; +SODIUM CHLORIDE 0.9% 1,000 ML IV SCH; -SODIUM CHLORIDE 0.9% 1,000 ML in EMPTY BAG 1 BAG IV ONE
[2022-01-10] MEDS ORDERED: SODIUM CHLORIDE 0.9% 500 ML 500 ML IV ONE (07:33)
[2022-01-10 07:50] VITALS: RESP 16; TEMP 97.9
[2022-01-10 08:06] LABS: Calcium 9.5 mg/dL (8.4-10.2); Potassium 4.3 mmol/L (3.5-5.1)
[2022-01-10] MEDS ORDERED: PROPOFOL 10 MG/ML 20 ML VIAL IV ONE (09:32)
--- NOTE | 2022-01-10 10:08 | P.HPCAR ---
History of Present Illness This is Dr. 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 He has tolerated sotalol and mexiletine He has recurrent fast ventricular tachycardia He underwent a diagnostic EP study which revealed that this was an epicardial source He has pericarditis that was documented or intracardiac echo Denies any chest discomfort dizziness or lightheadedness Denies any recent shocks or syncope ROS: No fever chills or rigors, no cough, phlegm or expectoration, no nausea, vomiting or diarrhea, no hematuria, dysuria, no musculoskeletal complaints, no strokes or seizures, no skin lesions. EXAMINATION: 97.9F, pulse rate in the 80s, blood pressure 148/87 mmHg No JVD Clear lungs no rhonchi no crackles Breath sounds are clear Normal heart sounds normal S1 normal S2 No lower extremity edema Soft abdomen REVIEW OF LABS, ECG & MEDICAL DATA Normal sodium and potassium of 140 and 4.3 Normal BUN and creatinine of 15 and 1.05 Normal calcium Physical Exam Vitals: Vital Signs Temp Pulse Resp BP Pulse Ox 01/10/22 07:47 97.9 F 85 16 148/87 98 Intake and Output 01/09/22 01/10/22 01/10/22 22:59 06:59 14:59 Intake Total 100 Balance 100 Intake: IV 100 Past Medical History Past Medical History: Cancer, CVA/TIA, Hyperlipidemia, Hypertension, Osteoarthritis (OA), Sleep Apnea/CPAP/BIPAP Additional Past Medical History / Comment(s): SEE H & P FROM DR. WOLF. 11/08 11/28 IP ADM (MULTIPLE FIRING OF DEFIBRILLATOR). COLON cancer 2009-had surgery & chemo. Stroke in 2020-no residual effects. Uses CPAP. Polycythemia History of Any Multi-Drug Resistant Organisms: None Reported Past Surgical History: AICD, Bowel Resection, Coronary Bypass/CABG, Heart Catheterization, Orthopedic Surgery, Pacemaker, Tonsillectomy Additional Past Surgical History / Comment(s): RT ALICIA. [employer] ICD. Past Anesthesia/Blood Transfusion Reactions: No Reported Reaction Type of Cardiac Device: AICD Device Placement Date:: 12/08/2020 Past Psychological History: No Psychological Hx Reported Smoking Status: Never smoker Past Alcohol Use History: None Reported Past Drug Use History: None Reported - Past Family History Father Family Medical History: Myocardial Infarction ([place]) Family Family Medical History: Chest Pain / Angina Physical Examination Vital Signs Temp Pulse Resp BP Pulse Ox 01/10/22 07:47 97.9 F 85 16 148/87 98 Intake and Output 01/09/22 01/10/22 01/10/22 22:59 06:59 14:59 Intake Total 100 Balance 100 Intake: IV 100 Results 01/10/22 07:40 Comprehensive Metabolic Panel 01/10/22 Range/Units 07:40 Sodium 140 (137-145) mmol/L Potassium 4.3 (3.5-5.1) mmol/L Chloride 105 (98-107) mmol/L Carbon Dioxide 24 (22-30) mmol/L BUN 15 (9-20) mg/dL Creatinine 1.05 (0.66-1.25) mg/dL Glucose 97 (74-99) mg/dL Calcium 9.5 (8.4-10.2) mg/dL Current Medications Generic Name Dose Route Start Last Admin Trade Name Freq PRN Reason Stop Dose Admin Sodium Chloride 1,000 mls @ 20 mls/hr 01/10/22 05:58 Saline 0.9% IV 02/09/22 05:59 .Q24H [id number] Intake and Output 01/09/22 01/10/22 01/10/22 22:59 06:59 14:59 Intake Total 100 Balance 100 Intake: IV 100 01/10/22 07:40
--- NOTE | 2022-01-10 10:13 | P.EPPROC ---
- EP Procedure Note Electrophysiology Procedure Note: Procedure Defibrillation level testing and ICD interrogation with reprogramming accordingly on sotalol and mexiletine [employer] single-chamber ICD interrogated R waves 18 mV, pacing impedance 437 ohms, RV coil impedance 67 ohms and Pacing threshold 0.7 mV @ 0.4 ms On a combination of sotalol and mexiletine, patient has not had any further episodes of sustained or nonsustained ventricular tachycardia Under conscious sedation defibrillation level testing was performed A shock and T wave protocol was used to induce ventricle fibrillation this was adequately and appropriately detected at least sensitivity with two dropouts Successful internal defibrillation with a 10 J shock Shocking impedance 68 ohms Charge time 1.7 seconds No post shock noise single chamber ICD was reprogrammed VF zone 214 beats a minute with for shock at 30 J and subsequent shocks of maximum output Appropriate antitachycardia pacing during charging VT zone programmed at 171 beats a minute. Appropriate antitachycardia pacing cardioversion and defibrillation First cardioversion at 10 J Monitor zone 150 beats a minute Patient tolerated the procedure well without any acute complications to Plan Continue sotalol 120 mg twice daily Reduce mexiletine to 150 mg twice a day
[2022-01-10 11:15] VITALS: BP 119/82; PULSE 58
== END 2022-01-10 11:00 | disposition home or self-care (01) ==
LOC: CATHEP 07:14
PROVIDERS: ATTEND Internal Medicine Clinical Cardiac Electrophysiology
DX: Z45.02 Encounter for adjustment and management of automatic implantable cardiac defibrillator (principal); I47.20 Ventricular tachycardia, unspecified; I42.8 Other cardiomyopathies; I31.9 Disease of pericardium, unspecified; I10 Essential (primary) hypertension; Z85.038 Personal history of other malignant neoplasm of large intestine; E78.5 Hyperlipidemia, unspecified; Z86.73 Personal history of transient ischemic attack (TIA), and cerebral infarction without residual deficits; M19.90 Unspecified osteoarthritis, unspecified site; G47.30 Sleep apnea, unspecified; Z92.21 Personal history of antineoplastic chemotherapy; D75.1 Secondary polycythemia; Z90.49 Acquired absence of other specified parts of digestive tract; Z95.1 Presence of aortocoronary bypass graft; Z98.890 Other specified postprocedural states; Z82.49 Family history of ischemic heart disease and other diseases of the circulatory system; Z79.01 Long term (current) use of anticoagulants; Z79.82 Long term (current) use of aspirin; Z79.899 Other long term (current) drug therapy
CPT/HCPCS: 93642; 80048; J2704